=== PATIENT | male | born 1950 | race Caucasian/White ===

== ENCOUNTER 2019-12-07 04:14 | Emergency (ER) | payer MEDICARE, OTHER ==
[~2019-12-07] VITALS: Ht 185.4 cm; Wt 118.5 kg
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
--- OUTSIDE RECORDS SUMMARY | 2019-12-07 04:21 | XMS REPORT | Clinical Summary ---
Author Author Massimo, Kwasi Andino Organization [facility] Address Unknown Phone Unavailable Allergies, Adverse Reactions, Alerts Allergy Name Reaction Description Start Date Severity Status Pr ovider LATEX rash Moderate Active Gloria Elder MORPHINE hallucination Critical Active Gloria Elder Conditions or Problems Problem Name Problem Code Onset Date Status Entry Date Provider Comment Standard Description Annotate [facility] Active Macho Lawler MD Hypertrophy (benign) of prostate without urinary obstruction and other lower urinary tract (LUTS) Elevated prostate specific antigen [PSA] 790.93 Active Macho Lawler MD Elevated prostate specific antigen [PSA] BMI 35-35.9 Active Macho Lawler MD Body Mass Index 35.0-35.9, adult Medication List Medication Instructions Start Date Stop Date Generic Name NDC Status Provider Patient Instruction FLOMAX 0.4 MG ORAL CAPSULE once daily TAMSULOSIN HCL 54813217253 Active Macho Lawler MD Active XANAX 0.25 MG ORAL TABLET 1 po TID PRN Anxiety ALPRAZOLAM 43476521015 No Longer Active Macho Lawler MD Active PROSTATE HEALTH ORAL CAPSULE 1 cap by mouth daily 2019 [facility] NATURAL PRODUCTS 30826957273 No Longer Active Macho Lawler MD Active BRILINTA 90 MG ORAL TABLET 1 tab by mouth daily 10/11 TICAGRELOR 99228941013 No Longer Active Macho Lawler MD Acti ve NITROSTAT 0.4 MG SUBLINGUAL TABLET SUBLINGUAL 1 tab under to unge prn chest pain NITROGLYCERIN 88890615584 Active Macho Lawler MD Active TYLENOL GO TABS EXTRA STRENGTH 500 MG ORAL TABLET CHEW ABLE 1 to 2 tabs by mouth prn ACETAMINOPHEN 39676301360 Active Macho Lawler MD Active ASPIRIN 81 MG ORAL TABLET DELAYED RELEASE 1 po qd ASPIRIN 67890422175 Active Macho Lawler MD Active RANEXA 500 MG ORAL TABLET EXTENDED RELEASE 12 HOUR 1 tab by mouth daily RANOLAZINE 03038184218 Active Macho Lawler MD Active IBUPROFEN 600 MG ORAL TABLET 1 po q6-8hr PRN IB UPROFEN 70694653158 No Longer Active Macho Lawler MD Active CLARITIN 10 MG ORAL TABLET 1 tablet by mouth daily as needed for allergies LORATADINE 38273310329 No Longer Active J Alfredito solano MD Active FLONASE 50 MCG/ACT NASAL SUSPENSION 1 spray each nostr il twice daily for allergies and runny nose FLUTICASONE PROPIONATE 01324783086 No Longer Active Macho Lawler MD Active LISINOPRIL 10 MG ORAL TABLET 1 tablet by mouth daily LISINOPRIL 31359354748 Active Gloria Zazueta Active FLONASE 50 MCG/ACT NASAL SUSPENSION 1 spray each nostr il twice daily for allergies and runny nose FLONASE 50 MCG/ ACT NASAL SUSPENSION FLUTICASONE PROPIONATE Inactive CLARITIN 10 MG ORAL TABLET 1 tablet by mouth daily as needed for allergies CLARITIN 10 MG ORAL TABLET 610547 LORATADINE I nactive IBUPROFEN 600 MG ORAL TABLET 1 po q6-8hr PRN 7 IBUPROFEN 600 MG ORAL TABLET 671826 IBUPROFEN Inactive BRILINTA 90 MG ORAL TABLET 1 tab by mouth daily 10/11 BRILINTA 90 MG ORAL TABLET TICAGRELOR Inactive PROSTATE HEALTH ORAL CAPSULE 1 cap by mouth daily 2019 PROSTATE [facility]ALTH ORAL CAPSULE MISC NATURAL PRODUCTS Inactive XANAX 0.25 MG ORAL TABLET 1 po TID PRN Anxiety XANAX 0.25 MG ORAL TABLET 675630 ALPRAZOLAM Inactive Advance Directives Directive Description Start Date PERMISSION TO SHARE Vital Signs Date Name Value Unit Range Description blood pressure, diastolic, repeated by physician 64 BP [place] blood pressure, diastolic 64 mm[Hg] BP [place] blood pressure, systolic, repeated by physician 134 BP sys blood pressure, systolic 134 mm[Hg] BP sys height E&M 72 [in_us] Bdy height pulse rate E&M 80 /min Heart rate temperature E&M 98.2 [degF] Body temp erature weight E&M 260 [lb_av] Weight Measure d height E&M 72 [in_us] Bdy height weight E&M 255 [lb_av] Weight Measure d Encounters Code Encounter Date Provider Facility CPT-77587 Level 3 Est. 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 Patient 16:51:02 SUPERVISOR FISHING Macho breaux MD [facility] CPT-86991 Level 3 Est. Patient 11:49:04 SUPERVISOR FISHING Macho breaux MD [facility] CPT-60812 Level 2 Est. Patient 18:29:02 CDT Macho breaux MD [facility] CPT-99551 Level 4 New Patient 15:56:58 CDT Macho boggs MD [facility] Procedures Code Procedure Name Date Entry Date Standard Desc ription CPT-42571 Needle Biopsy - Prostate 09:12:00 CDT 05/05 CPT-34931 Ultrasound - Prostatic for Bx 09:11:59 CDT CPT-17373 Abx/Therapy Injection 18:29:02 CDT CPT-36102 Ultrasound - Prostatic for Bx 18:29:02 CDT CPT-78214 Needle Biopsy - Prostate 18:29:01 CDT 05/11
--- OUTSIDE RECORDS SUMMARY | 2019-12-07 04:21 | XMS REPORT | Clinical Summary ---
Author Author Massimo, Kwasi Andino Organization [facility] Address Unknown Phone Unavailable Allergies, Adverse Reactions, [...] MG ORAL CAPSULE once daily TAMSULOSIN HCL 10682746684 Active Macho Lawler MD Active XANAX 0.25 MG ORAL TABLET 1 po TID PRN Anxiety ALPRAZOLAM 25571352409 No Longer Active Macho Lawler MD Active PROSTATE HEALTH ORAL CAPSULE 1 cap by mouth daily 2019 [facility] NATURAL PRODUCTS 89534543468 No Longer Active Macho Lawler MD Active BRILINTA 90 MG ORAL TABLET 1 tab by mouth daily 10/11 TICAGRELOR 92417134680 No Longer Active Macho Lawler MD Acti ve NITROSTAT 0.4 MG SUBLINGUAL TABLET SUBLINGUAL 1 tab under to unge prn chest pain NITROGLYCERIN 89030628898 Active Macho Lawler MD Active TYLENOL GO TABS EXTRA STRENGTH 500 MG ORAL TABLET CHEW ABLE 1 to 2 tabs by mouth prn ACETAMINOPHEN 73956150197 Active Macho Lawler MD Active ASPIRIN 81 MG ORAL TABLET DELAYED RELEASE 1 po qd ASPIRIN 44813435983 Active Macho Lawler MD Active RANEXA 500 MG ORAL TABLET EXTENDED RELEASE 12 HOUR 1 tab by mouth daily RANOLAZINE 89682190845 Active Macho Lawler MD Active IBUPROFEN 600 MG ORAL TABLET 1 po q6-8hr PRN IB UPROFEN 51178220700 No Longer Active Macho Lawler MD Active CLARITIN 10 MG ORAL TABLET 1 tablet by mouth daily as needed for allergies LORATADINE 95004420444 No Longer Active J Alfredito solano MD Active FLONASE 50 MCG/ACT NASAL SUSPENSION 1 spray each nostr il twice daily for allergies and runny nose FLUTICASONE PROPIONATE 02375971980 No Longer Active Macho Lawler MD Active LISINOPRIL 10 MG ORAL TABLET 1 tablet by mouth daily LISINOPRIL 73690646013 Active Gloria Zazueta Active FLONASE 50 MCG/ACT NASAL SUSPENSION 1 spray each nostr il twice daily for allergies and runny nose FLONASE 50 MCG/ ACT NASAL SUSPENSION FLUTICASONE PROPIONATE Inactive CLARITIN 10 MG ORAL TABLET 1 tablet by mouth daily as needed for allergies CLARITIN 10 MG ORAL TABLET 411393 LORATADINE I nactive IBUPROFEN 600 MG ORAL TABLET 1 po q6-8hr PRN 7 IBUPROFEN 600 MG ORAL TABLET 161735 IBUPROFEN Inactive BRILINTA 90 MG ORAL TABLET 1 tab by mouth daily 10/11 BRILINTA 90 MG ORAL TABLET TICAGRELOR Inactive PROSTATE HEALTH ORAL CAPSULE 1 cap by mouth daily 2019 PROSTATE HEALTH ORAL CAPSULE MISC NATURAL PRODUCTS Inactive XANAX 0.25 MG ORAL TABLET 1 po TID PRN Anxiety XANAX 0.25 MG ORAL TABLET 323226 ALPRAZOLAM Inactive Advance Directives Directive Description Start [...] d Encounters Code Encounter Date Provider Facility CPT-16720 Level 3 Est. 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 Patient 16:51:02 GEOMETRY TUTOR Macho breaux MD [facility] CPT-83205 Level 3 Est. Patient 11:49:04 GEOMETRY TUTOR Macho breaux MD [facility] CPT-50604 Level 2 Est. Patient 18:29:02 CDT Macho breaux MD [facility] CPT-35770 Level 4 New Patient 15:56:58 CDT Macho boggs MD [facility] Procedures Code Procedure Name Date Entry Date Standard Desc ription CPT-77672 Needle Biopsy - Prostate 09:12:00 CDT 05/05 CPT-12161 Ultrasound - Prostatic for Bx 09:11:59 CDT CPT-64775 Abx/Therapy Injection 18:29:02 CDT CPT-53186 Ultrasound - Prostatic for Bx 18:29:02 CDT CPT-94100 Needle Biopsy - Prostate 18:29:01 CDT 05/11
--- OUTSIDE RECORDS SUMMARY | 2019-12-07 04:22 | XMS REPORT | Clinical Summary ---
Author Author Massimo, Kwasi Andino Organization [facility] Address Unknown Phone Unavailable Allergies, Adverse [...] MG ORAL CAPSULE once daily TAMSULOSIN HCL 54181483277 Active Macho Lawler MD Active XANAX 0.25 MG ORAL TABLET 1 po TID PRN Anxiety ALPRAZOLAM 54617316006 No Longer Active Macho Lawler MD Active PROSTATE HEALTH ORAL CAPSULE 1 cap by mouth daily 2019 [facility] NATURAL PRODUCTS 57001183489 No Longer Active Macho Lawler MD Active BRILINTA 90 MG ORAL TABLET 1 tab by mouth daily 10/11 TICAGRELOR 86875717455 No Longer Active Macho Lawler MD Acti ve NITROSTAT 0.4 MG SUBLINGUAL TABLET SUBLINGUAL 1 tab under to unge prn chest pain NITROGLYCERIN 04042324003 Active Macho Lawler MD Active TYLENOL GO TABS EXTRA STRENGTH 500 MG ORAL TABLET CHEW ABLE 1 to 2 tabs by mouth prn ACETAMINOPHEN 30358219700 Active Macho Lawler MD Active ASPIRIN 81 MG ORAL TABLET DELAYED RELEASE 1 po qd ASPIRIN 69085893543 Active Macho Lawler MD Active RANEXA 500 MG ORAL TABLET EXTENDED RELEASE 12 HOUR 1 tab by mouth daily RANOLAZINE 24702103095 Active Macho Lawler MD Active IBUPROFEN 600 MG ORAL TABLET 1 po q6-8hr PRN IB UPROFEN 42090124056 No Longer Active Macho Lawler MD Active CLARITIN 10 MG ORAL TABLET 1 tablet by mouth daily as needed for allergies LORATADINE 80932087088 No Longer Active J Alfredito solano MD Active FLONASE 50 MCG/ACT NASAL SUSPENSION 1 spray each nostr il twice daily for allergies and runny nose FLUTICASONE PROPIONATE 97941278738 No Longer Active Macho Lawler MD Active LISINOPRIL 10 MG ORAL TABLET 1 tablet by mouth daily LISINOPRIL 35566227511 Active Gloria Zazueta Active FLONASE 50 MCG/ACT NASAL SUSPENSION 1 spray each nostr il twice daily for allergies and runny nose FLONASE 50 MCG/ ACT NASAL SUSPENSION FLUTICASONE PROPIONATE Inactive CLARITIN 10 MG ORAL TABLET 1 tablet by mouth daily as needed for allergies CLARITIN 10 MG ORAL TABLET 981272 LORATADINE I nactive IBUPROFEN 600 MG ORAL TABLET 1 po q6-8hr PRN 7 IBUPROFEN 600 MG ORAL TABLET 032005 IBUPROFEN Inactive BRILINTA 90 MG ORAL TABLET 1 tab by mouth daily 10/11 BRILINTA 90 MG ORAL TABLET TICAGRELOR Inactive PROSTATE HEALTH ORAL CAPSULE 1 cap by mouth daily 2019 PROSTATE HEALTH ORAL CAPSULE MISC NATURAL PRODUCTS Inactive XANAX 0.25 MG ORAL TABLET 1 po TID PRN Anxiety XANAX 0.25 MG ORAL TABLET 219632 ALPRAZOLAM Inactive Advance Directives Directive Description Start [...] d Encounters Code Encounter Date Provider Facility CPT-46912 Level 3 Est. 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 Patient 16:51:02 ACCOUNTANT CERTIFIED PUBLIC Macho breaux MD [facility] CPT-24816 Level 3 Est. Patient 11:49:04 ACCOUNTANT CERTIFIED PUBLIC Macho breaux MD [facility] CPT-39680 Level 2 Est. Patient 18:29:02 CDT Macho breaux MD [facility] CPT-62876 Level 4 New Patient 15:56:58 CDT Macho boggs MD [facility] Procedures Code Procedure Name Date Entry Date Standard Desc ription CPT-59819 Needle Biopsy - Prostate 09:12:00 CDT 05/05 CPT-26944 Ultrasound - Prostatic for Bx 09:11:59 CDT CPT-76500 Abx/Therapy Injection 18:29:02 CDT CPT-47854 Ultrasound - Prostatic for Bx 18:29:02 CDT CPT-20478 Needle Biopsy - Prostate 18:29:01 CDT 05/11
--- OUTSIDE RECORDS SUMMARY | 2019-12-07 04:22 | XMS REPORT | Clinical Summary ---
Author Author Admin, Kwasi Andino Organization [facility] Address Unknown Phone Unavailable Allergies, Adverse Reactions, [...] Lawler MD Elevated prostate specific antigen [PSA] Medication List Medication Instructions Start Date Stop Date Generic Name NDC Status Provider Patient Instruction NITROSTAT 0.4 MG SUBLINGUAL TABLET SUBLINGUAL 1 tab under to unge prn chest pain NITROGLYCERIN 71125208401 Active Macho Lawler MD Active XANAX 0.25 MG ORAL TABLET 1 po TID PRN Anxiety ALPRAZOLAM 94001421033 Active Macho Lawler MD Active TYLENOL GO TABS EXTRA STRENGTH 500 MG ORAL TABLET CHEW ABLE 1 to 2 tabs by mouth prn ACETAMINOPHEN 34712982648 Active Macho Lawler MD Active PROSTATE HEALTH ORAL CAPSULE 1 cap by mouth daily [facility] NATURAL PRODUCTS 81654564091 Active Macho Lawler MD Active ASPIRIN 81 MG ORAL TABLET DELAYED RELEASE 1 po qd ASPIRIN 19353229066 Ghazal Lawler MD Active RANEXA 500 MG ORAL TABLET EXTENDED RELEASE 12 HOUR 1 tab by mouth daily RANOLAZINE 84408014248 Active Macho Lawler MD Active BRILINTA 90 MG ORAL TABLET 1 tab by mouth daily TICAGRELOR 24479640993 Ghazal Lawler MD Active IBUPROFEN 600 MG ORAL TABLET 1 po q6-8hr PRN IB UPROFEN 88230520475 No Longer Active Macho Lawler MD Active CLARITIN 10 MG ORAL TABLET 1 tablet by mouth daily as needed for allergies LORATADINE 77963858946 No Longer Active Macho solano MD Active FLONASE 50 MCG/ACT NASAL SUSPENSION 1 spray each nostr il twice daily for allergies and runny nose FLUTICASONE PROPIONATE 95626926166 No Longer Active Macho Lawler MD Active LISINOPRIL 10 MG ORAL TABLET 1 tablet by mouth daily LISINOPRIL 70423763390 Active Gloria Elder Active FLONASE 50 MCG/ACT NASAL SUSPENSION 1 spray each nostr il twice daily for allergies and runny nose FLONASE 50 MCG/ ACT NASAL SUSPENSION 0764654 FLUTICASONE PROPIONATE Inactive CLARITIN 10 MG ORAL TABLET 1 tablet by mouth daily as needed for allergies CLARITIN 10 MG ORAL TABLET 834095 LORATADINE I nactive IBUPROFEN 600 MG ORAL TABLET 1 po q6-8hr PRN 7 IBUPROFEN 600 MG ORAL TABLET 686325 IBUPROFEN Inactive Advance Directives Directive Description Start Date PERMISSION TO SHARE Vital Signs Date Name Value Unit Range Description blood pressure, diastolic 78 mm[Hg] BP [place] blood pressure, systolic 120 mm[Hg] BP sys pulse rate E&M 60 /min Heart rate temperature E&M 98.5 [degF] Body temp erature weight E&M 255 [lb_av] Weight Measure d blood pressure, diastolic 77 mm[Hg] BP [place] blood pressure, systolic 146 mm[Hg] BP sys pulse rate E&M 54 /min Heart rate temperature E&M 97.7 [degF] Body temp erature weight E&M 254.4 [lb_av] Weight Measure d blood pressure, diastolic 75 mm[Hg] BP [place] blood pressure, systolic 125 mm[Hg] BP sys pulse rate E&M 71 /min Heart rate temperature E&M 98.1 [degF] Body temp erature weight E&M 260 [lb_av] Weight Measure d blood pressure, diastolic 72 mm[Hg] BP [place] blood pressure, systolic 130 mm[Hg] BP sys height E&M 72 [in_us] Bdy height pulse rate E&M 72 /min Heart rate temperature E&M 97.6 [degF] Body temp erature weight E&M 260 [lb_av] Weight Measure d Diagnostic Results Date Name Value Unit Range Description Chart Maintenance: Outside labs entered on flowsheet - Chemistry prostate specific antigen 10.7 ng/mL prostate specific antigen 10.4 ng/mL Encounters Code Encounter Date Provider Facility CPT-62769 Level 3 Est. 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 Patient 18:29:02 CDT Macho breaux MD [facility] CPT-39709 Level 4 New Patient 15:56:58 CDT Macho boggs MD [facility] Procedures Code Procedure Name Date Entry Date Standard Desc ription CPT-14535 Needle Biopsy - Prostate 09:12:00 CDT 05/05 CPT-51998 Ultrasound - Prostatic for Bx 09:11:59 CDT CPT-83937 Abx/Therapy Injection 18:29:02 CDT CPT-07445 Ultrasound - Prostatic for Bx 18:29:02 CDT CPT-99767 Needle Biopsy - Prostate 18:29:01 CDT 05/11
--- OUTSIDE RECORDS SUMMARY | 2019-12-07 04:22 | XMS REPORT | Clinical Summary ---
Author Author Kwasi Keys Organization [facility] Address Unknown Phone Unavailable Allergies, [...] Instructions Start Date Stop Date Generic Name ND Status Provider Patient Instruction NITROSTAT 0.4 MG SUBLINGUAL TABLET SUBLINGUAL 1 tab under to unge prn chest pain NITROGLYCERIN 04386030364 Active Macho Lawler MD Active XANAX 0.25 MG ORAL TABLET 1 po TID PRN Anxiety ALPRAZOLAM 83362287878 Active Macho Lawler MD Active TYLENOL GO TABS EXTRA STRENGTH 500 MG ORAL TABLET CHEW ABLE 1 to 2 tabs by mouth prn ACETAMINOPHEN 18658497690 Ghazal Lawler MD Active PROSTATE HEALTH ORAL CAPSULE 1 cap by mouth daily [facility] NATURAL PRODUCTS 58917211063 Active Macho Lawler MD Active ASPIRIN 81 MG ORAL TABLET DELAYED RELEASE 1 po qd ASPIRIN 83979842859 Ghazal Lawler MD Active RANEXA 500 MG ORAL TABLET EXTENDED RELEASE 12 HOUR 1 tab by mouth daily RANOLAZINE 18258155892 Active Macho Lawler MD Active BRILINTA 90 MG ORAL TABLET 1 tab by mouth daily TICAGRELOR 72535268123 Ghazal Lawler MD Active IBUPROFEN 600 MG ORAL TABLET 1 po q6-8hr PRN IB UPROFEN 65138645147 No Longer Active Macho Lawler MD Active CLARITIN 10 MG ORAL TABLET 1 tablet by mouth daily as needed for allergies LORATADINE 28670597135 No Longer Active Macho solano MD Active FLONASE 50 MCG/ACT NASAL SUSPENSION 1 spray each nostr il twice daily for allergies and runny nose FLUTICASONE PROPIONATE 77553074609 No Longer Active Macho Lawler MD Active LISINOPRIL 10 MG ORAL TABLET 1 tablet by mouth daily LISINOPRIL 19317130765 Active Golria Elder Active FLONASE 50 MCG/ACT NASAL SUSPENSION 1 spray each nostr il twice daily for allergies and runny nose FLONASE 50 MCG/ ACT NASAL SUSPENSION FLUTICASONE PROPIONATE Inactive CLARITIN 10 MG ORAL TABLET 1 tablet by mouth daily as needed for allergies CLARITIN 10 MG ORAL TABLET 404675 LORATADINE I nactive IBUPROFEN 600 MG ORAL TABLET 1 po q6-8hr PRN 7 IBUPROFEN 600 MG ORAL TABLET 980173 IBUPROFEN Inactive Advance Directives Directive Description Start Date PERMISSION TO SHARE Vital Signs Date Name Value Unit Range Description height E&M 72 [in_us] Bdy height weight E&M 255 [lb_av] Weight Measure d Encounters Code Encounter Date Provider Facility CPT-93917 Level 3 Est. 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 Patient 11:49:04 CAN PATCHER Macho breaux MD [facility] [place] CPT-93145 Level 2 Est. Patient 18:29:02 CDT Macho breaux MD [facility] CPT-65863 Level 4 New Patient 15:56:58 CDT Macho boggs MD [facility] Procedures Code Procedure Name Date Entry Date Standard Desc ription CPT-55174 Needle Biopsy - Prostate 09:12:00 CDT 05/05 CPT-29795 Ultrasound - Prostatic for Bx 09:11:59 CDT CPT-40971 Abx/Therapy Injection 18:29:02 T CPT-96266 Ultrasound - Prostatic for Bx 18:29:02 T CPT-01171 Needle Biopsy - Prostate 18:29:01 T 05/11
--- OUTSIDE RECORDS SUMMARY | 2019-12-07 04:22 | XMS REPORT | Clinical Summary ---
Author Author Kwasi Keys Organization [facility] Address Unknown Phone Unavailable Allergies, Adverse Reactions, [...] under to unge prn chest pain NITROGLYCERIN 18039460059 Active Macho Lawler MD Active XANAX 0.25 MG ORAL TABLET 1 po TID PRN Anxiety ALPRAZOLAM 56031773444 Active Macho Lawler MD Active TYLENOL GO TABS EXTRA STRENGTH 500 MG ORAL TABLET CHEW ABLE 1 to 2 tabs by mouth prn ACETAMINOPHEN 86512957774 Ghazal Lawler MD Active PROSTATE HEALTH ORAL CAPSULE 1 cap by mouth daily [facility] NATURAL PRODUCTS 28910474037 Active Macho Lawler MD Active ASPIRIN 81 MG ORAL TABLET DELAYED RELEASE 1 po qd ASPIRIN 87390500864 Ghazal Lawler MD Active RANEXA 500 MG ORAL TABLET EXTENDED RELEASE 12 HOUR 1 tab by mouth daily RANOLAZINE 92483129870 Active Macho Lawler MD Active BRILINTA 90 MG ORAL TABLET 1 tab by mouth daily TICAGRELOR 65197627433 Ghazal Lawler MD Active IBUPROFEN 600 MG ORAL TABLET 1 po q6-8hr PRN IB UPROFEN 89286318513 No Longer Active Macho Lawler MD Active CLARITIN 10 MG ORAL TABLET 1 tablet by mouth daily as needed for allergies LORATADINE 53138376204 No Longer Active Macho solano MD Active FLONASE 50 MCG/ACT NASAL SUSPENSION 1 spray each nostr il twice daily for allergies and runny nose FLUTICASONE PROPIONATE 68823527651 No Longer Active Macho Lawler MD Active LISINOPRIL 10 MG ORAL TABLET 1 tablet by mouth daily LISINOPRIL 41912576618 Active Gloria Elder Active FLONASE 50 MCG/ACT NASAL SUSPENSION 1 spray each nostr il twice daily for allergies and runny nose FLONASE 50 MCG/ ACT NASAL SUSPENSION FLUTICASONE PROPIONATE Inactive CLARITIN 10 MG ORAL TABLET 1 tablet by mouth daily as needed for allergies CLARITIN 10 MG ORAL TABLET 703032 LORATADINE I nactive IBUPROFEN 600 MG ORAL TABLET 1 po q6-8hr PRN 7 IBUPROFEN 600 MG ORAL TABLET 829825 IBUPROFEN Inactive Advance Directives Directive Description Start Date PERMISSION TO SHARE Vital Signs Date Name Value Unit Range Description height E&M 72 [in_us] Bdy height weight E&M 255 [lb_av] Weight Measure d Encounters Code Encounter Date Provider Facility CPT-17827 Level 3 Est. 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 Patient 11:49:04 TURKEY PINNER Macho breaux MD [facility] [place] CPT-46256 Level 2 Est. Patient 18:29:02 CDT Macho [facility] CPT-91583 Level 4 New Patient 15:56:58 CDT Macho boggs MD [facility] Procedures Code Procedure Name Date Entry Date Standard Desc ription CPT-89142 Needle Biopsy - Prostate 09:12:00 CDT 05/05 CPT-39720 Ultrasound - Prostatic for Bx 09:11:59 CDT CPT-03602 Abx/Therapy Injection 18:29:02 T CPT-30713 Ultrasound - Prostatic for Bx 18:29:02 T CPT-95355 Needle Biopsy - Prostate 18:29:01 T 05/11
--- OUTSIDE RECORDS SUMMARY | 2019-12-07 04:22 | XMS REPORT | Clinical Summary ---
Author Author Massimo, Kwasi Andino Organization [facility] Address Unknown Phone Unavailable Allergies, Adverse [...] MG ORAL CAPSULE once daily TAMSULOSIN HCL 49014357918 Active Macho Lawler MD Active XANAX 0.25 MG ORAL TABLET 1 po TID PRN Anxiety ALPRAZOLAM 23313675606 No Longer Active Macho Lawler MD Active PROSTATE HEALTH ORAL CAPSULE 1 cap by mouth daily 2019 [facility]URAL PRODUCTS 06137275205 No Longer Active Macho Lawler MD Active BRILINTA 90 MG ORAL TABLET 1 tab by mouth daily 10/11 TICAGRELOR 04907165901 No Longer Active Macho Lawler MD Acti ve NITROSTAT 0.4 MG SUBLINGUAL TABLET SUBLINGUAL 1 tab under to unge prn chest pain NITROGLYCERIN 70921604829 Active Macho Lawler MD Active TYLENOL GO TABS EXTRA STRENGTH 500 MG ORAL TABLET CHEW ABLE 1 to 2 tabs by mouth prn ACETAMINOPHEN 29792525748 Active Macho Lawler MD Active ASPIRIN 81 MG ORAL TABLET DELAYED RELEASE 1 po qd ASPIRIN 22036407887 Active Macho Lawler MD Active RANEXA 500 MG ORAL TABLET EXTENDED RELEASE 12 HOUR 1 tab by mouth daily RANOLAZINE 26487434330 Active Macho Lawler MD Active IBUPROFEN 600 MG ORAL TABLET 1 po q6-8hr PRN IB UPROFEN 34995148080 No Longer Active Macho Lawler MD Active CLARITIN 10 MG ORAL TABLET 1 tablet by mouth daily as needed for allergies LORATADINE 93728410730 No Longer Active J Alfredito solano MD Active FLONASE 50 MCG/ACT NASAL SUSPENSION 1 spray each nostr il twice daily for allergies and runny nose FLUTICASONE PROPIONATE 35950447921 No Longer Active Macho Lawler MD Active LISINOPRIL 10 MG ORAL TABLET 1 tablet by mouth daily LISINOPRIL 78599238172 Active Gloria Zazueta Active FLONASE 50 MCG/ACT NASAL SUSPENSION 1 spray each nostr il twice daily for allergies and runny nose FLONASE 50 MCG/ ACT NASAL SUSPENSION FLUTICASONE PROPIONATE Inactive CLARITIN 10 MG ORAL TABLET 1 tablet by mouth daily as needed for allergies CLARITIN 10 MG ORAL TABLET 799039 LORATADINE I nactive IBUPROFEN 600 MG ORAL TABLET 1 po q6-8hr PRN 7 IBUPROFEN 600 MG ORAL TABLET 201356 IBUPROFEN Inactive BRILINTA 90 MG ORAL TABLET 1 tab by mouth daily 10/11 BRILINTA 90 MG ORAL TABLET TICAGRELOR Inactive PROSTATE HEALTH ORAL CAPSULE 1 cap by mouth daily 2019 PROSTATE HEALTH ORAL CAPSULE MISC NATURAL PRODUCTS Inactive XANAX 0.25 MG ORAL TABLET 1 po TID PRN Anxiety XANAX 0.25 MG ORAL TABLET 405171 ALPRAZOLAM Inactive Advance Directives Directive Description Start [...] d Encounters Code Encounter Date Provider Facility CPT-00536 Level 3 Est. Patient 10:49:38 ROUGH RICE GRADER Macho breaux MD [facility] CPT-38867 Level 3 Est. Patient 16:51:02 ROUGH RICE GRADER Macho breaux MD [facility] CPT-69019 Level 3 Est. Patient 11:49:04 ROUGH RICE GRADER Macho breaux MD [facility] CPT-72907 Level 2 Est. Patient 18:29:02 CDT Macho breaux MD [facility] CPT-11108 Level 4 New Patient 15:56:58 CDT Macho boggs MD [facility] Procedures Code Procedure Name Date Entry Date Standard Desc ription CPT-27856 Needle Biopsy - Prostate 09:12:00 CDT 05/05 CPT-25174 Ultrasound - Prostatic for Bx 09:11:59 CDT CPT-81011 Abx/Therapy Injection 18:29:02 CDT CPT-10310 Ultrasound - Prostatic for Bx 18:29:02 CDT CPT-40787 Needle Biopsy - Prostate 18:29:01 CDT 05/11
--- OUTSIDE RECORDS SUMMARY | 2019-12-07 04:22 | XMS REPORT | Clinical Summary ---
Author Author Admin, Kwasi Andino Organization [facility] Address Unknown Phone Unavailable Allergies, Adverse [...] under to unge prn chest pain NITROGLYCERIN 68136639558 Active Macho Lawler MD Active XANAX 0.25 MG ORAL TABLET 1 po TID PRN Anxiety ALPRAZOLAM 27758125202 Active Macho Lawler MD Active TYLENOL GO TABS EXTRA STRENGTH 500 MG ORAL TABLET CHEW ABLE 1 to 2 tabs by mouth prn ACETAMINOPHEN 45505555918 Active Macho Lawler MD Active PROSTATE HEALTH ORAL CAPSULE 1 cap by mouth daily [facility] NATURAL PRODUCTS 87335530735 Active Macho Lawler MD Active ASPIRIN 81 MG ORAL TABLET DELAYED RELEASE 1 po qd ASPIRIN 42881116862 Ghazal Lawler MD Active RANEXA 500 MG ORAL TABLET EXTENDED RELEASE 12 HOUR 1 tab by mouth daily RANOLAZINE 23369644912 Active Macho Lawler MD Active BRILINTA 90 MG ORAL TABLET 1 tab by mouth daily TICAGRELOR 99590790884 Ghazal Lawler MD Active IBUPROFEN 600 MG ORAL TABLET 1 po q6-8hr PRN IB UPROFEN 37852382072 No Longer Active Macho Lawler MD Active CLARITIN 10 MG ORAL TABLET 1 tablet by mouth daily as needed for allergies LORATADINE 26807968917 No Longer Active Macho solano MD Active FLONASE 50 MCG/ACT NASAL SUSPENSION 1 spray each nostr il twice daily for allergies and runny nose FLUTICASONE PROPIONATE 07051389287 No Longer Active Macho aLwler MD Active LISINOPRIL 10 MG ORAL TABLET 1 tablet by mouth daily LISINOPRIL 07980245451 Active Gloria Elder Active FLONASE 50 MCG/ACT NASAL SUSPENSION 1 spray each nostr il twice daily for allergies and runny nose FLONASE 50 MCG/ ACT NASAL SUSPENSION 6417745 FLUTICASONE PROPIONATE Inactive CLARITIN 10 MG ORAL TABLET 1 tablet by mouth daily as needed for allergies CLARITIN 10 MG ORAL TABLET 307595 LORATADINE I nactive IBUPROFEN 600 MG ORAL TABLET 1 po q6-8hr PRN 7 IBUPROFEN 600 MG ORAL TABLET 638419 IBUPROFEN Inactive Advance Directives Directive Description Start Date PERMISSION TO SHARE Vital Signs Date Name Value Unit Range Description blood pressure, diastolic 77 mm[Hg] BP archuleta [...] ng/mL Encounters Code Encounter Date Provider Facility CPT-09133 Level 3 Est. Patient 11:49:04 SCIENTIFIC ADVISOR Macho breaux MD [facility] CPT-32344 Level 2 Est. Patient 18:29:02 CDT Macho breaux MD [facility] CPT-21115 Level 4 New Patient 15:56:58 CDT Macho boggs MD [facility] Procedures Code Procedure Name Date Entry Date Standard Desc ription CPT-65710 Needle Biopsy - Prostate 09:12:00 CDT 05/05 CPT-31634 Ultrasound - Prostatic for Bx 09:11:59 CDT CPT-12350 Abx/Therapy Injection 18:29:02 CDT CPT-80494 Ultrasound - Prostatic for Bx 18:29:02 CDT CPT-66390 Needle Biopsy - Prostate 18:29:01 CDT 05/11
--- OUTSIDE RECORDS SUMMARY | 2019-12-07 04:22 | XMS REPORT | Clinical Summary ---
Author Author Kwasi Keys Organization [facility] Address Unknown Phone Unavailable Allergies, Adverse Reactions, [...] under to unge prn chest pain NITROGLYCERIN 06196665356 Active Macho Lawler MD Active XANAX 0.25 MG ORAL TABLET 1 po TID PRN Anxiety ALPRAZOLAM 20953432229 Active Macho Lawler MD Active TYLENOL GO TABS EXTRA STRENGTH 500 MG ORAL TABLET CHEW ABLE 1 to 2 tabs by mouth prn ACETAMINOPHEN 06553750941 Ghazal Lawler MD Active PROSTATE HEALTH ORAL CAPSULE 1 cap by mouth daily [facility] NATURAL PRODUCTS 19783866886 Active Macho Lawler MD Active ASPIRIN 81 MG ORAL TABLET DELAYED RELEASE 1 po qd ASPIRIN 35978316011 Ghazal Lawler MD Active RANEXA 500 MG ORAL TABLET EXTENDED RELEASE 12 HOUR 1 tab by mouth daily RANOLAZINE 49888677583 Active Macho Lawler MD Active BRILINTA 90 MG ORAL TABLET 1 tab by mouth daily TICAGRELOR 59645898857 Ghazal Lawler MD Active IBUPROFEN 600 MG ORAL TABLET 1 po q6-8hr PRN IB UPROFEN 69342447494 No Longer Active Macho Lawler MD Active CLARITIN 10 MG ORAL TABLET 1 tablet by mouth daily as needed for allergies LORATADINE 36721050984 No Longer Active Macho solano MD Active FLONASE 50 MCG/ACT NASAL SUSPENSION 1 spray each nostr il twice daily for allergies and runny nose FLUTICASONE PROPIONATE 74503170962 No Longer Active Macho Lawler MD Active LISINOPRIL 10 MG ORAL TABLET 1 tablet by mouth daily LISINOPRIL 42202719798 Active Gloria Elder Active FLONASE 50 MCG/ACT NASAL SUSPENSION 1 spray each nostr il twice daily for allergies and runny nose FLONASE 50 MCG/ ACT NASAL SUSPENSION FLUTICASONE PROPIONATE Inactive CLARITIN 10 MG ORAL TABLET 1 tablet by mouth daily as needed for allergies CLARITIN 10 MG ORAL TABLET 065341 LORATADINE I nactive IBUPROFEN 600 MG ORAL TABLET 1 po q6-8hr PRN 7 IBUPROFEN 600 MG ORAL TABLET 702991 IBUPROFEN Inactive Advance Directives Directive Description Start Date PERMISSION TO SHARE Vital Signs Date Name Value Unit Range Description height E&M 72 [in_us] Bdy height weight E&M 255 [lb_av] Weight Measure d Encounters Code Encounter Date Provider Facility CPT-49812 Level 3 Est. 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 Patient 11:49:04 OUTDOOR EDUCATION TEACHER Macho breaux MD [facility] CPT-24089 Level 2 Est. Patient 18:29:02 CDT Macho breaux MD [facility] CPT-90291 Level 4 New Patient 15:56:58 CDT Macho boggs MD [facility] Procedures Code Procedure Name Date Entry Date Standard Desc ription CPT-46960 Needle Biopsy - Prostate 09:12:00 CDT 05/05 CPT-00150 Ultrasound - Prostatic for Bx 09:11:59 CDT CPT-48555 Abx/Therapy Injection 18:29:02 T CPT-90498 Ultrasound - Prostatic for Bx 18:29:02 T CPT-78957 Needle Biopsy - Prostate 18:29:01 T 05/11
--- OUTSIDE RECORDS SUMMARY | 2019-12-07 04:22 | XMS REPORT | Clinical Summary ---
Author Author Kwasi Keys Organization [facility] Address Unknown Phone Unavailable Allergies, Adverse [...] under to unge prn chest pain NITROGLYCERIN 43299818234 Active Macho Lawler MD Active XANAX 0.25 MG ORAL TABLET 1 po TID PRN Anxiety ALPRAZOLAM 93718754946 Active Macho Lawler MD Active TYLENOL GO TABS EXTRA STRENGTH 500 MG ORAL TABLET CHEW ABLE 1 to 2 tabs by mouth prn ACETAMINOPHEN 11983793465 Ghazal Lawler MD Active PROSTATE HEALTH ORAL CAPSULE 1 cap by mouth daily [facility] NATURAL PRODUCTS 35381226023 Active Macho Lawler MD Active ASPIRIN 81 MG ORAL TABLET DELAYED RELEASE 1 po qd ASPIRIN 17442709944 Ghazal Lawler MD Active RANEXA 500 MG ORAL TABLET EXTENDED RELEASE 12 HOUR 1 tab by mouth daily RANOLAZINE 42696680753 Active Macho Lawler MD Active BRILINTA 90 MG ORAL TABLET 1 tab by mouth daily TICAGRELOR 03586257714 Ghazal Lawler MD Active IBUPROFEN 600 MG ORAL TABLET 1 po q6-8hr PRN IB UPROFEN 11451265772 No Longer Active Macho Lawler MD Active CLARITIN 10 MG ORAL TABLET 1 tablet by mouth daily as needed for allergies LORATADINE 41972638488 No Longer Active Macho solano MD Active FLONASE 50 MCG/ACT NASAL SUSPENSION 1 spray each nostr il twice daily for allergies and runny nose FLUTICASONE PROPIONATE 74246664751 No Longer Active Macho Lawler MD Active LISINOPRIL 10 MG ORAL TABLET 1 tablet by mouth daily LISINOPRIL 48076257018 Active Gloria Elder Active FLONASE 50 MCG/ACT NASAL SUSPENSION 1 spray each nostr il twice daily for allergies and runny nose FLONASE 50 MCG/ ACT NASAL SUSPENSION FLUTICASONE PROPIONATE Inactive CLARITIN 10 MG ORAL TABLET 1 tablet by mouth daily as needed for allergies CLARITIN 10 MG ORAL TABLET 190616 LORATADINE I nactive IBUPROFEN 600 MG ORAL TABLET 1 po q6-8hr PRN 7 IBUPROFEN 600 MG ORAL TABLET 656611 IBUPROFEN Inactive Advance Directives Directive Description Start Date PERMISSION TO SHARE Vital Signs Date Name Value Unit Range Description height E&M 72 [in_us] Bdy height weight E&M 255 [lb_av] Weight Measure d Encounters Code Encounter Date Provider Facility CPT-67112 Level 3 Est. Patient 16:51:02 OPERATIONS OFFICER AFLOAT Macho breaux MD [facility] CPT-54092 Level 3 Est. Patient 11:49:04 OPERATIONS OFFICER AFLOAT Macho breaux MD [facility] CPT-33607 Level 2 Est. Patient 18:29:02 CDT Macho breaux MD [facility] CPT-22596 Level 4 New Patient 15:56:58 CDT Macho boggs MD [facility] Procedures Code Procedure Name Date Entry Date Standard Desc ription CPT-88407 Needle Biopsy - Prostate 09:12:00 CDT 05/05 CPT-49521 Ultrasound - Prostatic for Bx 09:11:59 CDT CPT-36807 Abx/Therapy Injection 18:29:02 T CPT-06965 Ultrasound - Prostatic for Bx 18:29:02 T CPT-17858 Needle Biopsy - Prostate 18:29:01 T 05/11
--- OUTSIDE RECORDS SUMMARY | 2019-12-07 04:22 | XMS REPORT | Clinical Summary ---
Author Author Massimo, Kwasi Andino Organization [facility] Address Unknown [...] MD Elevated prostate specific antigen [PSA] BMI 34-34.9 Active Macho Lawler MD Body Mass Index 34.0-34.9, adult Obesity Class I (BMI 30-34.9) Active 09/10 Macho Lawler MD Obesity, unspecified At Risk for Falls Active Macho Lawler MD Personal history of fall Rising PSA 790.93 Active Macho Lawler MD Elevated prostate specific antigen [PSA] Medication List Medication Instructions Start Date Stop Date Generic Name NDC Status Provider Patient Instruction NITROSTAT 0.4 MG SUBLINGUAL TABLET SUBLINGUAL 1 tab under to unge prn chest pain NITROGLYCERIN 82336576772 Active Macho Lawler MD Active XANAX 0.25 MG ORAL TABLET 1 po TID PRN Anxiety ALPRAZOLAM 30157094032 Active Macho Lawler MD Active TYLENOL GO TABS EXTRA STRENGTH 500 MG ORAL TABLET CHEW ABLE 1 to 2 tabs by mouth prn ACETAMINOPHEN 25639086498 Active Macho Lawler MD Active PROSTATE HEALTH ORAL CAPSULE 1 cap by mouth daily [facility] NATURAL PRODUCTS 35126442351 Active Macho Lawler MD Active ASPIRIN 81 MG ORAL TABLET DELAYED RELEASE 1 po qd ASPIRIN 19930465735 Active Macho Lawler MD Active RANEXA 500 MG ORAL TABLET EXTENDED RELEASE 12 HOUR 1 tab by mouth daily RANOLAZINE 10514890280 Active Macho Lawler MD Active BRILINTA 90 MG ORAL TABLET 1 tab by mouth daily TICAGRELOR 09090156694 Active Macho Lawler MD Active IBUPROFEN 600 MG ORAL TABLET 1 po q6-8hr PRN IB UPROFEN 75532605194 No Longer Active Macho Lawler MD Active CLARITIN 10 MG ORAL TABLET 1 tablet by mouth daily as needed for allergies LORATADINE 09787789814 No Longer Active Macho solano MD Active FLONASE 50 MCG/ACT NASAL SUSPENSION 1 spray each nostr il twice daily for allergies and runny nose FLUTICASONE PROPIONATE 12004817327 No Longer Active Macho Lawler MD Active LISINOPRIL 10 MG ORAL TABLET 1 tablet by mouth daily LISINOPRIL 15771232503 Active Gloria Zazueta Active FLONASE 50 MCG/ACT NASAL SUSPENSION 1 spray each nostr il twice daily for allergies and runny nose FLONASE 50 MCG/ ACT NASAL SUSPENSION FLUTICASONE PROPIONATE Inactive CLARITIN 10 MG ORAL TABLET 1 tablet by mouth daily as needed for allergies CLARITIN 10 MG ORAL TABLET 997210 LORATADINE I nactive IBUPROFEN 600 MG ORAL TABLET 1 po q6-8hr PRN 7 IBUPROFEN 600 MG ORAL TABLET 389508 IBUPROFEN Inactive Advance Directives Directive Description Start Date PERMISSION TO SHARE Vital Signs Date Name Value Unit Range Description height E&M 72 [in_us] Bdy height weight E&M 255 [lb_av] Weight Measure d Encounters Code Encounter Date Provider Facility CPT-21386 Level 3 Est. Patient 16:51:02 DEALMAKER Macho breaux MD [facility] CPT-47003 Level 3 Est. Patient 11:49:04 DEALMAKER Macho breaux MD [facility] CPT-89116 Level 2 Est. Patient 18:29:02 CDT Macho breaux MD [facility] CPT-47826 Level 4 New Patient 15:56:58 CDT Macho boggs MD [facility] Procedures Code Procedure Name Date Entry Date Standard Desc ription CPT-82802 Needle Biopsy - Prostate 09:12:00 CDT 05/05 CPT-22884 Ultrasound - Prostatic for Bx 09:11:59 CDT CPT-71409 Abx/Therapy Injection 18:29:02 CDT CPT-42762 Ultrasound - Prostatic for Bx 18:29:02 CDT CPT-72734 Needle Biopsy - Prostate 18:29:01 CDT 05/11
--- OUTSIDE RECORDS SUMMARY | 2019-12-07 04:22 | XMS REPORT | Clinical Summary ---
Author Author Massimo, Kwasi Andino Organization [facility] Address Unknown Phone Unavailable Allergies, Adverse Reactions, [...] prostate specific antigen [PSA] BMI 35-35.9 Active aMcho Lawler MD Body Mass Index 35.0-35.9, adult Medication List Medication Instructions Start Date Stop Date Generic Name NDC Status Provider Patient Instruction FLOMAX 0.4 MG ORAL CAPSULE once daily TAMSULOSIN HCL 23939815188 Active Macho Lawler MD Active XANAX 0.25 MG ORAL TABLET 1 po TID PRN Anxiety ALPRAZOLAM 01868136896 No Longer Active Macho Lawler MD Active PROSTATE HEALTH ORAL CAPSULE 1 cap by mouth daily 2019 [facility] [place]URAL PRODUCTS 86436227078 No Longer Active Macho Lawler MD Active BRILINTA 90 MG ORAL TABLET 1 tab by mouth daily 10/11 TICAGRELOR 98546221482 No Longer Active Macho Lawler MD Acti ve NITROSTAT 0.4 MG SUBLINGUAL TABLET SUBLINGUAL 1 tab under to unge prn chest pain NITROGLYCERIN 52248525967 Active Macho Lawler MD Active TYLENOL GO TABS EXTRA STRENGTH 500 MG ORAL TABLET CHEW ABLE 1 to 2 tabs by mouth prn ACETAMINOPHEN 88294921274 Active Macho Lawler MD Active ASPIRIN 81 MG ORAL TABLET DELAYED RELEASE 1 po qd ASPIRIN 70961930165 Active Macho Lawler MD Active RANEXA 500 MG ORAL TABLET EXTENDED RELEASE 12 HOUR 1 tab by mouth daily RANOLAZINE 68161521654 Active Macho Lawler MD Active IBUPROFEN 600 MG ORAL TABLET 1 po q6-8hr PRN IB UPROFEN 62433353863 No Longer Active Macho Lawler MD Active CLARITIN 10 MG ORAL TABLET 1 tablet by mouth daily as needed for allergies LORATADINE 60819131481 No Longer Active J Alfredito solano MD Active FLONASE 50 MCG/ACT NASAL SUSPENSION 1 spray each nostr il twice daily for allergies and runny nose FLUTICASONE PROPIONATE 71064254436 No Longer Active Macho Lawler MD Active LISINOPRIL 10 MG ORAL TABLET 1 tablet by mouth daily LISINOPRIL 60040706621 Active Gloria Zazueta Active FLONASE 50 MCG/ACT NASAL SUSPENSION 1 spray each nostr il twice daily for allergies and runny nose FLONASE 50 MCG/ ACT NASAL SUSPENSION FLUTICASONE PROPIONATE Inactive CLARITIN 10 MG ORAL TABLET 1 tablet by mouth daily as needed for allergies CLARITIN 10 MG ORAL TABLET 809497 LORATADINE I nactive IBUPROFEN 600 MG ORAL TABLET 1 po q6-8hr PRN 7 IBUPROFEN 600 MG ORAL TABLET 065727 IBUPROFEN Inactive BRILINTA 90 MG ORAL TABLET 1 tab by mouth daily 10/11 BRILINTA 90 MG ORAL TABLET TICAGRELOR Inactive PROSTATE HEALTH ORAL CAPSULE 1 cap by mouth daily 2019 PROSTATE HEALTH ORAL CAPSULE MISC NATURAL PRODUCTS Inactive XANAX 0.25 MG ORAL TABLET 1 po TID PRN Anxiety XANAX 0.25 MG ORAL TABLET 388005 ALPRAZOLAM Inactive Advance Directives Directive Description Start [...] d Encounters Code Encounter Date Provider Facility CPT-94424 Level 3 Est. 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 Patient 16:51:02 RIGGING LOFT MECHANIC Macho breaux MD [facility] CPT-03991 Level 3 Est. Patient 11:49:04 RIGGING LOFT MECHANIC Macho breaux MD [facility] CPT-33282 Level 2 Est. Patient 18:29:02 CDT Mcaho breaux MD [facility] CPT-49077 Level 4 New Patient 15:56:58 CDT Macho boggs MD [facility] Procedures Code Procedure Name Date Entry Date Standard Desc ription CPT-62871 Needle Biopsy - Prostate 09:12:00 CDT 05/05 CPT-43759 Ultrasound - Prostatic for Bx 09:11:59 CDT CPT-11095 Abx/Therapy Injection 18:29:02 CDT CPT-37544 Ultrasound - Prostatic for Bx 18:29:02 CDT CPT-19849 Needle Biopsy - Prostate 18:29:01 CDT 05/11
--- OUTSIDE RECORDS SUMMARY | 2019-12-07 04:22 | XMS REPORT | Clinical Summary ---
Author Author Admin, Kwasi Andino Organization [facility] Address Unknown Phone Unavailable Allergies, Adverse [...] Generic Name NDC Status Provider Patient Instruction FLONASE 50 MCG/ACT SUSP 1 spray each nostril twice d aily for allergies and runny nose FLUTICASONE PROPIONATE 17538989560 No Longer Ac tive Macho Lawler MD Active IBUPROFEN 600 MG TAB 1 po q6-8hr PRN IBUPROFEN 642261 35678 Active Gloria Elder Active CLARITIN 10 MG TAB 1 tablet by mouth daily as needed for allergies LORATADINE 50216776184 Active Gloria Elder Active LISINOPRIL 10 MG TABS 1 tablet by mouth daily L ISINOPRIL 75248801379 Active Gloria Elder Active FLONASE 50 MCG/ACT SUSP 1 spray each nostril twice d aily for allergies and runny nose FLONASE 50 MCG/ACT SUSP 7493311 FLUT ICASONE PROPIONATE Inactive Advance Directives Directive Description Start Date [...] - Chemistry prostate specific antigen 10.7 ng/mL Encounters Code Encounter Date Provider Facility CPT-79552 Level 2 Est. Patient 18:29:02 CDT Macho breaux MD [facility] CPT-30861 Level 4 New Patient 15:56:58 CDT Macho boggs MD [facility] Procedures Code Procedure Name Date Entry Date Standard Desc ription CPT-09288 Needle Biopsy - Prostate 09:12:00 CDT 05/05 CPT-92828 Ultrasound - Prostatic for Bx 09:11:59 CDT CPT-60542 Abx/Therapy Injection 18:29:02 CDT CPT-19676 Ultrasound - Prostatic for Bx 18:29:02 CDT CPT-01934 Needle Biopsy - Prostate 18:29:01 CDT 05/11
--- OUTSIDE RECORDS SUMMARY | 2019-12-07 04:22 | XMS REPORT | Clinical Summary ---
Author Author Massimo, Kwasi Andino Organization [facility] Address Unknown Phone Unavailable Allergies, Adverse [...] MG ORAL CAPSULE once daily TAMSULOSIN HCL 81849295106 Active Macho Lawler MD Active XANAX 0.25 MG ORAL TABLET 1 po TID PRN Anxiety ALPRAZOLAM 31791697535 No Longer Active Macho Lawler MD Active PROSTATE HEALTH ORAL CAPSULE 1 cap by mouth daily 2019 [facility] NATURAL PRODUCTS 33773624916 No Longer Active Macho Lawler MD Active BRILINTA 90 MG ORAL TABLET 1 tab by mouth daily 10/11 TICAGRELOR 85070231222 No Longer Active Macho Lawler MD Acti ve NITROSTAT 0.4 MG SUBLINGUAL TABLET SUBLINGUAL 1 tab under to unge prn chest pain NITROGLYCERIN 17883247237 Active Macho Lawler MD Active TYLENOL GO TABS EXTRA STRENGTH 500 MG ORAL TABLET CHEW ABLE 1 to 2 tabs by mouth prn ACETAMINOPHEN 32354653782 Active Macho Lawler MD Active ASPIRIN 81 MG ORAL TABLET DELAYED RELEASE 1 po qd ASPIRIN 83702351641 Active Macho Lawler MD Active RANEXA 500 MG ORAL TABLET EXTENDED RELEASE 12 HOUR 1 tab by mouth daily RANOLAZINE 02404428866 Active Macho Lawler MD Active IBUPROFEN 600 MG ORAL TABLET 1 po q6-8hr PRN IB UPROFEN 41188678454 No Longer Active Macho Lawler MD Active CLARITIN 10 MG ORAL TABLET 1 tablet by mouth daily as needed for allergies LORATADINE 48612321888 No Longer Active J Alfredito solano MD Active FLONASE 50 MCG/ACT NASAL SUSPENSION 1 spray each nostr il twice daily for allergies and runny nose FLUTICASONE PROPIONATE 15971864905 No Longer Active Mcaho Lawler MD Active LISINOPRIL 10 MG ORAL TABLET 1 tablet by mouth daily LISINOPRIL 05505871092 Active Gloria Zazueta Active FLONASE 50 MCG/ACT NASAL SUSPENSION 1 spray each nostr il twice daily for allergies and runny nose FLONASE 50 MCG/ ACT NASAL SUSPENSION FLUTICASONE PROPIONATE Inactive CLARITIN 10 MG ORAL TABLET 1 tablet by mouth daily as needed for allergies CLARITIN 10 MG ORAL TABLET 285331 LORATADINE I nactive IBUPROFEN 600 MG ORAL TABLET 1 po q6-8hr PRN 7 IBUPROFEN 600 MG ORAL TABLET 479064 IBUPROFEN Inactive BRILINTA 90 MG ORAL TABLET 1 tab by mouth daily 10/11 BRILINTA 90 MG ORAL TABLET TICAGRELOR Inactive PROSTATE HEALTH ORAL CAPSULE 1 cap by mouth daily 2019 PROSTATE HEALTH ORAL CAPSULE MISC NATURAL PRODUCTS Inactive XANAX 0.25 MG ORAL TABLET 1 po TID PRN Anxiety XANAX 0.25 MG ORAL TABLET 250905 ALPRAZOLAM Inactive Advance Directives Directive Description Start [...] d Encounters Code Encounter Date Provider Facility CPT-63808 Level 3 Est. Patient 10:49:38 EX ASSISTANT/PROGRAM DIRECTOR Macho breaux MD [facility] CPT-11523 Level 3 Est. Patient 16:51:02 EX ASSISTANT/PROGRAM DIRECTOR Macho breaux MD [facility] CPT-15179 Level 3 Est. Patient 11:49:04 EX ASSISTANT/PROGRAM DIRECTOR Macho breaux MD [facility] CPT-83071 Level 2 Est. Patient 18:29:02 CDT Macho breaux MD [facility] CPT-07348 Level 4 New Patient 15:56:58 CDT Macho boggs MD [facility] Procedures Code Procedure Name Date Entry Date Standard Desc ription CPT-42412 Needle Biopsy - Prostate 09:12:00 CDT 05/05 CPT-25565 Ultrasound - Prostatic for Bx 09:11:59 CDT CPT-80776 Abx/Therapy Injection 18:29:02 CDT CPT-59688 Ultrasound - Prostatic for Bx 18:29:02 CDT CPT-28563 Needle Biopsy - Prostate 18:29:01 CDT 05/11
--- OUTSIDE RECORDS SUMMARY | 2019-12-07 04:23 | XMS REPORT | Clinical Summary ---
Author Author Admin, Kwasi Andino Organization [facility] Address Unknown Phone Unavailable Allergies, Adverse [...] for allergies and runny nose FLUTICASONE PROPIONATE 62205018207 No Longer Ac tive Macho Lawler MD Active IBUPROFEN 600 MG TAB 1 po q6-8hr PRN IBUPROFEN 831507 41548 Active Gloria Elder Active CLARITIN 10 MG TAB 1 tablet by mouth daily as needed for allergies LORATADINE 87869316960 Active Gloria Elder Active LISINOPRIL 10 MG TABS 1 tablet by mouth daily L ISINOPRIL 74441423724 Active Gloria Elder Active FLONASE 50 MCG/ACT SUSP 1 spray each nostril twice d aily for allergies and runny nose FLONASE 50 MCG/ACT SUSP 0650309 FLUT ICASONE PROPIONATE Inactive Advance Directives Directive [...] ng/mL Encounters Code Encounter Date Provider Facility CPT-78884 Level 2 Est. Patient 18:29:02 CDT Macho breaux MD [facility] CPT-81940 Level 4 New Patient 15:56:58 CDT Macho boggs MD [facility] - [facility] Procedures Code Procedure Name Date Entry Date Standard Desc ription CPT-10579 Needle Biopsy - Prostate 09:12:00 CDT 05/05 CPT-56292 Ultrasound - Prostatic for Bx 09:11:59 CDT CPT-87745 Abx/Therapy Injection 18:29:02 CDT CPT-77520 Ultrasound - Prostatic for Bx 18:29:02 CDT CPT-56548 Needle Biopsy - Prostate 18:29:01 CDT 05/11
--- OUTSIDE RECORDS SUMMARY | 2019-12-07 04:23 | XMS REPORT | Clinical Summary ---
Author Author Admin, Kwasi Andino Organization [facility] Address Unknown Phone Unavailable Allergies, Adverse [...] for allergies and runny nose FLUTICASONE PROPIONATE 86047091034 No Longer Ac tive Macho Lawler MD Active IBUPROFEN 600 MG TAB 1 po q6-8hr PRN IBUPROFEN 380032 31560 Active Gloria Elder Active CLARITIN 10 MG TAB 1 tablet by mouth daily as needed for allergies LORATADINE 69053501112 Active Gloria Elder Active LISINOPRIL 10 MG TABS 1 tablet by mouth daily L ISINOPRIL 89173522229 Active Gloria Elder Active FLONASE 50 MCG/ACT SUSP 1 spray each nostril twice d aily for allergies and runny nose FLONASE 50 MCG/ACT SUSP 1759854 FLUT ICASONE PROPIONATE Inactive Advance Directives Directive [...] ng/mL Encounters Code Encounter Date Provider Facility CPT-54501 Level 2 Est. Patient 18:29:02 CDT Macho breaux MD [facility] CPT-23367 Level 4 New Patient 15:56:58 CDT Macho boggs MD [facility] - [facility] Procedures Code Procedure Name Date Entry Date Standard Desc ription CPT-18672 Needle Biopsy - Prostate 09:12:00 CDT 05/05 CPT-06966 Ultrasound - Prostatic for Bx 09:11:59 CDT CPT-47231 Abx/Therapy Injection 18:29:02 CDT CPT-36979 Ultrasound - Prostatic for Bx 18:29:02 CDT CPT-48983 Needle Biopsy - Prostate 18:29:01 CDT 05/11
--- OUTSIDE RECORDS SUMMARY | 2019-12-07 04:23 | XMS REPORT | Clinical Summary ---
Author Author Admin, Kwasi Andino Organization [facility] Address Unknown Phone Unavailable Allergies, Adverse Reactions, [...] for allergies and runny nose FLUTICASONE PROPIONATE 88413544617 No Longer Ac tive Macho Lawler MD Active IBUPROFEN 600 MG TAB 1 po q6-8hr PRN IBUPROFEN 674210 77293 Active Gloria Elder Active CLARITIN 10 MG TAB 1 tablet by mouth daily as needed for allergies LORATADINE 34698252242 Active Gloria Elder Active LISINOPRIL 10 MG TABS 1 tablet by mouth daily L ISINOPRIL 09383937040 Active Gloria Elder Active FLONASE 50 MCG/ACT SUSP 1 spray each nostril twice d aily for allergies and runny nose FLONASE 50 MCG/ACT SUSP 1950710 FLUT ICASONE PROPIONATE Inactive Advance Directives Directive [...] weight E&M 260 [lb_av] Weight Measure d Encounters Code Encounter Date Provider Facility CPT-14305 Level 2 Est. Patient 18:29:02 CDT Macho breaux MD [facility] CPT-78768 Level 4 New Patient 15:56:58 CDT Macho boggs MD [facility] - [facility] Procedures Code Procedure Name Date Entry Date Standard Desc ription CPT-13216 Needle Biopsy - Prostate 09:12:00 CDT 05/05 CPT-59546 Ultrasound - Prostatic for Bx 09:11:59 CDT CPT-15697 Abx/Therapy Injection 18:29:02 CDT CPT-97433 Ultrasound - Prostatic for Bx 18:29:02 CDT CPT-61302 Needle Biopsy - Prostate 18:29:01 CDT 05/11
--- OUTSIDE RECORDS SUMMARY | 2019-12-07 04:23 | XMS REPORT | Clinical Summary ---
Author Author Admin, Kwasi Andino Organization [facility] Address Unknown Phone Unavailable Allergies, Adverse [...] for allergies and runny nose FLUTICASONE PROPIONATE 98122378878 No Longer Ac tive Macho aLwler MD Active IBUPROFEN 600 MG TAB 1 po q6-8hr PRN IBUPROFEN 953301 22947 Active Gloria Elder Active CLARITIN 10 MG TAB 1 tablet by mouth daily as needed for allergies LORATADINE 22736216458 Active Gloria Elder Active LISINOPRIL 10 MG TABS 1 tablet by mouth daily L ISINOPRIL 31597588953 Active Gloria Elder Active FLONASE 50 MCG/ACT SUSP 1 spray each nostril twice d aily for allergies and runny nose FLONASE 50 MCG/ACT SUSP 7312096 FLUT ICASONE PROPIONATE Inactive Advance Directives Directive [...] ng/mL Encounters Code Encounter Date Provider Facility CPT-18499 Level 2 Est. Patient 18:29:02 CDT Macho breaux MD [facility] CPT-05088 Level 4 New Patient 15:56:58 CDT Macho boggs MD [facility] - [facility] Procedures Code Procedure Name Date Entry Date Standard Desc ription CPT-38137 Needle Biopsy - Prostate 09:12:00 CDT 05/05 CPT-35413 Ultrasound - Prostatic for Bx 09:11:59 CDT CPT-91768 Abx/Therapy Injection 18:29:02 CDT CPT-28502 Ultrasound - Prostatic for Bx 18:29:02 CDT CPT-10683 Needle Biopsy - Prostate 18:29:01 CDT 05/11
--- OUTSIDE RECORDS SUMMARY | 2019-12-07 04:23 | XMS REPORT | Clinical Summary ---
[...] for allergies and runny nose FLUTICASONE PROPIONATE 93450568526 No Longer Ac tive Macho Lawler MD Active IBUPROFEN 600 MG TAB 1 po q6-8hr PRN IBUPROFEN 996300 16535 Active Gloria Elder Active CLARITIN 10 MG TAB 1 tablet by mouth daily as needed for allergies LORATADINE 70947688734 Active Gloria Elder Active LISINOPRIL 10 MG TABS 1 tablet by mouth daily L ISINOPRIL 55926983222 Active Gloria Elder Active FLONASE 50 MCG/ACT SUSP 1 spray each nostril twice d aily for allergies and runny nose FLONASE 50 MCG/ACT SUSP 2001333 FLUT ICASONE PROPIONATE Inactive Advance Directives Directive [...] d Encounters Code Encounter Date Provider Facility CPT-59385 Level 2 Est. Patient 18:29:02 CDT Macho breaux MD [facility] CPT-98337 Level 4 New Patient 15:56:58 CDT Macho boggs MD [facility] - [facility] Procedures Code Procedure Name Date Entry Date Standard Desc ription CPT-36700 Needle Biopsy - Prostate 09:12:00 CDT 05/05 CPT-87361 Ultrasound - Prostatic for Bx 09:11:59 CDT CPT-36232 Abx/Therapy Injection 18:29:02 CDT CPT-56849 Ultrasound - Prostatic for Bx 18:29:02 CDT CPT-04002 Needle Biopsy - Prostate 18:29:01 CDT 05/11
--- OUTSIDE RECORDS SUMMARY | 2019-12-07 04:23 | XMS REPORT | Clinical Summary ---
Author Author Massimo, Kwasi Andino Organization [facility] Address Unknown Phone Unavailable Allergies, Adverse [...] under to unge prn chest pain NITROGLYCERIN 00183114966 Active Macho Lawler MD Active XANAX 0.25 MG ORAL TABLET 1 po TID PRN Anxiety ALPRAZOLAM 45082296613 Active Macho Lawler MD Active TYLENOL GO TABS EXTRA STRENGTH 500 MG ORAL TABLET CHEW ABLE 1 to 2 tabs by mouth prn ACETAMINOPHEN 10140989993 Active Macho Lawler MD Active PROSTATE HEALTH ORAL CAPSULE 1 cap by mouth daily [facility] NATURAL PRODUCTS 91339015041 Active Macho Lawler MD Active ASPIRIN 81 MG ORAL TABLET DELAYED RELEASE 1 po qd ASPIRIN 83293291309 Ghazal Lawler MD Active RANEXA 500 MG ORAL TABLET EXTENDED RELEASE 12 HOUR 1 tab by mouth daily RANOLAZINE 33025131345 Active Macho Lawler MD Active BRILINTA 90 MG ORAL TABLET 1 tab by mouth daily TICAGRELOR 33422393428 Ghazal Lawler MD Active IBUPROFEN 600 MG ORAL TABLET 1 po q6-8hr PRN IB UPROFEN 34212058809 No Longer Active Macho Lawler MD Active CLARITIN 10 MG ORAL TABLET 1 tablet by mouth daily as needed for allergies LORATADINE 74444281109 No Longer Active Macho solano MD Active FLONASE 50 MCG/ACT NASAL SUSPENSION 1 spray each nostr il twice daily for allergies and runny nose FLUTICASONE PROPIONATE 29632276751 No Longer Active Macho Lawler MD Active LISINOPRIL 10 MG ORAL TABLET 1 tablet by mouth daily LISINOPRIL 28561870844 Active Gloria Elder Active FLONASE 50 MCG/ACT NASAL SUSPENSION 1 spray each nostr il twice daily for allergies and runny nose FLONASE 50 MCG/ ACT NASAL SUSPENSION 1142472 FLUTICASONE PROPIONATE Inactive CLARITIN 10 MG ORAL TABLET 1 tablet by mouth daily as needed for allergies CLARITIN 10 MG ORAL TABLET 993971 LORATADINE I nactive IBUPROFEN 600 MG ORAL TABLET 1 po q6-8hr PRN 7 IBUPROFEN 600 MG ORAL TABLET 827407 IBUPROFEN Inactive Advance Directives Directive Description Start [...] ng/mL Encounters Code Encounter Date Provider Facility CPT-58034 Level 3 Est. 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 Patient 18:29:02 CDT Macho breuax MD [facility] CPT-83502 Level 4 New Patient 15:56:58 CDT Macho boggs MD [facility] Procedures Code Procedure Name Date Entry Date Standard Desc ription CPT-12588 Needle Biopsy - Prostate 09:12:00 CDT 05/05 CPT-05437 Ultrasound - Prostatic for Bx 09:11:59 CDT CPT-14425 Abx/Therapy Injection 18:29:02 CDT CPT-55274 Ultrasound - Prostatic for Bx 18:29:02 CDT CPT-38377 Needle Biopsy - Prostate 18:29:01 CDT 05/11
--- OUTSIDE RECORDS SUMMARY | 2019-12-07 04:23 | XMS REPORT | Clinical Summary ---
Author Author Admin, Kwasi Andino Organization [facility] Address Unknown Phone Unavailable Allergies, [...] for allergies and runny nose FLUTICASONE PROPIONATE 14083169492 No Longer Ac tive Macho Lawler MD Active IBUPROFEN 600 MG TAB 1 po q6-8hr PRN IBUPROFEN 525648 86131 Active Gloria Elder Active CLARITIN 10 MG TAB 1 tablet by mouth daily as needed for allergies LORATADINE 26357425977 Active Gloria Elder Active LISINOPRIL 10 MG TABS 1 tablet by mouth daily L ISINOPRIL 68886308022 Active Gloria Elder Active FLONASE 50 MCG/ACT SUSP 1 spray each nostril twice d aily for allergies and runny nose FLONASE 50 MCG/ACT SUSP 6087229 FLUT ICASONE PROPIONATE Inactive Advance Directives Directive [...] ng/mL Encounters Code Encounter Date Provider Facility CPT-78196 Level 2 Est. Patient 18:29:02 CDT Macho breaux MD [facility] CPT-01769 Level 4 New Patient 15:56:58 CDT Macho boggs MD [facility] - [facility] Procedures Code Procedure Name Date Entry Date Standard Desc ription CPT-30894 Needle Biopsy - Prostate 09:12:00 CDT 05/05 CPT-00902 Ultrasound - Prostatic for Bx 09:11:59 CDT CPT-95864 Abx/Therapy Injection 18:29:02 CDT CPT-65240 Ultrasound - Prostatic for Bx 18:29:02 CDT CPT-38402 Needle Biopsy - Prostate 18:29:01 CDT 05/11
--- OUTSIDE RECORDS SUMMARY | 2019-12-07 04:23 | XMS REPORT | Clinical Summary ---
Author Author Admin, Kwasi Andino Organization [facility] Address Unknown Phone Unavailable Allergies, Adverse [...] for allergies and runny nose FLUTICASONE PROPIONATE 65460462534 No Longer Ac tive Macho Lawler MD Active IBUPROFEN 600 MG TAB 1 po q6-8hr PRN IBUPROFEN 430421 92841 Active Gloria Elder Active CLARITIN 10 MG TAB 1 tablet by mouth daily as needed for allergies LORATADINE 93136893964 Active Gloria Elder Active LISINOPRIL 10 MG TABS 1 tablet by mouth daily L ISINOPRIL 93096049072 Active Gloria Elder Active FLONASE 50 MCG/ACT SUSP 1 spray each nostril twice d aily for allergies and runny nose FLONASE 50 MCG/ACT SUSP 1108569 FLUT ICASONE PROPIONATE Inactive Advance Directives Directive [...] ng/mL Encounters Code Encounter Date Provider Facility CPT-72580 Level 2 Est. Patient 18:29:02 CDT Macho breaux MD [facility] CPT-10913 Level 4 New Patient 15:56:58 CDT Macho boggs MD [facility] - [facility] Procedures Code Procedure Name Date Entry Date Standard Desc ription CPT-97329 Needle Biopsy - Prostate 09:12:00 CDT 05/05 CPT-55847 Ultrasound - Prostatic for Bx 09:11:59 CDT CPT-05870 Abx/Therapy Injection 18:29:02 CDT CPT-51146 Ultrasound - Prostatic for Bx 18:29:02 CDT CPT-78173 Needle Biopsy - Prostate 18:29:01 CDT 05/11
--- OUTSIDE RECORDS SUMMARY | 2019-12-07 04:23 | XMS REPORT | Clinical Summary ---
Author Author Massimo, Kwasi Andino Organization [facility] Address Unknown Phone Unavailable Allergies, [...] under to unge prn chest pain NITROGLYCERIN 51915617805 Active Macho Lawler MD Active XANAX 0.25 MG ORAL TABLET 1 po TID PRN Anxiety ALPRAZOLAM 15050040543 Active Macho Lawler MD Active TYLENOL GO TABS EXTRA STRENGTH 500 MG ORAL TABLET CHEW ABLE 1 to 2 tabs by mouth prn ACETAMINOPHEN 61039151008 Active Macho Lawler MD Active PROSTATE HEALTH ORAL CAPSULE 1 cap by mouth daily [facility] NATURAL PRODUCTS 83713070480 Active Macho Lawler MD Active ASPIRIN 81 MG ORAL TABLET DELAYED RELEASE 1 po qd ASPIRIN 88339466132 Ghazal Lawler MD Active RANEXA 500 MG ORAL TABLET EXTENDED RELEASE 12 HOUR 1 tab by mouth daily RANOLAZINE 98484570527 Active Macho Lawler MD Active BRILINTA 90 MG ORAL TABLET 1 tab by mouth daily TICAGRELOR 86269773818 Ghazal Lawler MD Active IBUPROFEN 600 MG ORAL TABLET 1 po q6-8hr PRN IB UPROFEN 75491010482 No Longer Active Macho Lawler MD Active CLARITIN 10 MG ORAL TABLET 1 tablet by mouth daily as needed for allergies LORATADINE 38161762167 No Longer Active Macho solano MD Active FLONASE 50 MCG/ACT NASAL SUSPENSION 1 spray each nostr il twice daily for allergies and runny nose FLUTICASONE PROPIONATE 11886369704 No Longer Active Macho Lawler MD Active LISINOPRIL 10 MG ORAL TABLET 1 tablet by mouth daily LISINOPRIL 81833488897 Active Gloria Elder Active FLONASE 50 MCG/ACT NASAL SUSPENSION 1 spray each nostr il twice daily for allergies and runny nose FLONASE 50 MCG/ ACT NASAL SUSPENSION 5838884 FLUTICASONE PROPIONATE Inactive CLARITIN 10 MG ORAL TABLET 1 tablet by mouth daily as needed for allergies CLARITIN 10 MG ORAL TABLET 658518 LORATADINE I nactive IBUPROFEN 600 MG ORAL TABLET 1 po q6-8hr PRN 7 IBUPROFEN 600 MG ORAL TABLET 203423 IBUPROFEN Inactive Advance Directives Directive Description Start [...] ng/mL Encounters Code Encounter Date Provider Facility CPT-03013 Level 3 Est. 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 Patient 18:29:02 CDT Macho breaux MD [facility] CPT-65591 Level 4 New Patient 15:56:58 CDT Macho boggs MD [facility] Procedures Code Procedure Name Date Entry Date Standard Desc ription CPT-73676 Needle Biopsy - Prostate 09:12:00 CDT 05/05 CPT-45090 Ultrasound - Prostatic for Bx 09:11:59 CDT CPT-92667 Abx/Therapy Injection 18:29:02 CDT CPT-69367 Ultrasound - Prostatic for Bx 18:29:02 CDT CPT-02671 Needle Biopsy - Prostate 18:29:01 CDT 05/11
--- OUTSIDE RECORDS SUMMARY | 2019-12-07 04:23 | XMS REPORT | Clinical Summary ---
Author Author Admin, Kwasi Andino Organization [facility] Address Unknown Phone Unavailable Allergies, [...] for allergies and runny nose FLUTICASONE PROPIONATE 07334983966 No Longer Ac tive Macho Lawler MD Active IBUPROFEN 600 MG TAB 1 po q6-8hr PRN IBUPROFEN 539505 94235 Active Gloria Elder Active CLARITIN 10 MG TAB 1 tablet by mouth daily as needed for allergies LORATADINE 04089338895 Active Gloria Elder Active LISINOPRIL 10 MG TABS 1 tablet by mouth daily L ISINOPRIL 52681675353 Active Gloria Elder Active FLONASE 50 MCG/ACT SUSP 1 spray each nostril twice d aily for allergies and runny nose FLONASE 50 MCG/ACT SUSP 3127446 FLUT ICASONE PROPIONATE Inactive Advance Directives Directive [...] ng/mL Encounters Code Encounter Date Provider Facility CPT-30500 Level 2 Est. Patient 18:29:02 CDT Macho breaux MD [facility] CPT-41840 Level 4 New Patient 15:56:58 CDT Macho boggs MD [facility] Procedures Code Procedure Name Date Entry Date Standard Desc ription CPT-27817 Needle Biopsy - Prostate 09:12:00 CDT 05/05 CPT-72808 Ultrasound - Prostatic for Bx 09:11:59 CDT CPT-33855 Abx/Therapy Injection 18:29:02 CDT CPT-40208 Ultrasound - Prostatic for Bx 18:29:02 CDT CPT-85081 Needle Biopsy - Prostate 18:29:01 CDT 05/11
--- OUTSIDE RECORDS SUMMARY | 2019-12-07 04:23 | XMS REPORT | Clinical Summary ---
Author Author Admin, Kwasi Chandra [facility] Address Unknown Phone Unavailable Allergies, [...] for allergies and runny nose FLUTICASONE PROPIONATE 51373942477 No Longer Ac tive Macho Lawler MD Active IBUPROFEN 600 MG TAB 1 po q6-8hr PRN IBUPROFEN 032207 30213 Active Gloria Elder Active CLARITIN 10 MG TAB 1 tablet by mouth daily as needed for allergies LORATADINE 85550990537 Active Gloria Elder Active LISINOPRIL 10 MG TABS 1 tablet by mouth daily L ISINOPRIL 67261535177 Active Gloria Elder Active FLONASE 50 MCG/ACT SUSP 1 spray each nostril twice d aily for allergies and runny nose FLONASE 50 MCG/ACT SUSP 5563399 FLUT ICASONE PROPIONATE Inactive Advance Directives Directive Description Start Date PERMISSION TO SHARE Vital Signs Date Name Value Unit Range Description blood pressure, diastolic - 8462-4 72 mm[Hg] BP [place] blood pressure, systolic - 8480-6 130 mm[Hg] BP sys height E&M - 8302-2 72 [in_us] Bdy h eight pulse rate E&M - 8867-4 72 /min H eart rate temperature E&M 97.6 [degF] Body temp erature weight E&M - 3141-9 260 [lb_av] Weigh t Measured Encounters Code Encounter Date Provider Facility CPT-20673 Level 4 New Patient 15:56:58 CDT J Alfredito boggs MD [facility]
--- OUTSIDE RECORDS SUMMARY | 2019-12-07 04:23 | XMS REPORT | Clinical Summary ---
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) Elevated prostate specific antigen [PSA] 790.93 Active Macho Lawler MD Elevated prostate specific antigen [PSA] Medication List Medication Instructions Start Date Stop Date Generic Name NDC Status Provider Patient Instruction FLONASE 50 MCG/ACT SUSP 1 spray each nostril twice d aily for allergies and runny nose FLUTICASONE PROPIONATE 58111261131 No Longer Ac tive Macho Lawler MD Active IBUPROFEN 600 MG TAB 1 po q6-8hr PRN IBUPROFEN 015263 12646 Active Gloria Elder Active CLARITIN 10 MG TAB 1 tablet by mouth daily as needed for allergies LORATADINE 13067876551 Active Gloria Elder Active LISINOPRIL 10 MG TABS 1 tablet by mouth daily L ISINOPRIL 24182562921 Active Gloria Elder Active FLONASE 50 MCG/ACT SUSP 1 spray each nostril twice d aily for allergies and runny nose FLONASE 50 MCG/ACT SUSP 2645356 FLUT ICASONE PROPIONATE Inactive Advance Directives Directive Description Start Date PERMISSION TO SHARE Encounters Code Encounter Date Provider Facility CPT-59816 Level 4 New Patient 15:56:58 TOPHER boggs MD [facility]
--- OUTSIDE RECORDS SUMMARY | 2019-12-07 04:23 | XMS REPORT | Clinical Summary ---
Author Author Admin, Kwasi Andino Organization [facility] Address Unknown Phone Unavailable Allergies, Adverse [...] for allergies and runny nose FLUTICASONE PROPIONATE 94513028994 No Longer Ac tive Macho Lawler MD Active IBUPROFEN 600 MG TAB 1 po q6-8hr PRN IBUPROFEN 171227 96853 Active Gloria Elder Active CLARITIN 10 MG TAB 1 tablet by mouth daily as needed for allergies LORATADINE 02571927546 Active Gloria Elder Active LISINOPRIL 10 MG TABS 1 tablet by mouth daily L ISINOPRIL 55489160605 Active Gloria Elder Active FLONASE 50 MCG/ACT SUSP 1 spray each nostril twice d aily for allergies and runny nose FLONASE 50 MCG/ACT SUSP 3437096 FLUT ICASONE PROPIONATE Inactive Advance Directives Directive [...] ng/mL Encounters Code Encounter Date Provider Facility CPT-74753 Level 2 Est. Patient 18:29:02 CDT Macho breaux MD [facility] CPT-90334 Level 4 New Patient 15:56:58 CDT Macho boggs MD [facility] Procedures Code Procedure Name Date Entry Date Standard Desc ription CPT-72179 Needle Biopsy - Prostate 09:12:00 CDT 05/05 CPT-94739 Ultrasound - Prostatic for Bx 09:11:59 CDT CPT-54175 Abx/Therapy Injection 18:29:02 CDT CPT-99677 Ultrasound - Prostatic for Bx 18:29:02 CDT CPT-71874 Needle Biopsy - Prostate 18:29:01 CDT 05/11
--- OUTSIDE RECORDS SUMMARY | 2019-12-07 04:23 | XMS REPORT | Clinical Summary ---
Demographics Home Phone Preferred Language Unknown Marital Status Unknown Mosque Affiliation Unknown Race Unknown Ethnic Group Unknown Author Author Massimo, Kwasi Chandra [facility] Address Unknown Phone Unavailable Allergies, Adverse Reactions, Alerts Allergy Name Reaction Description Start Date Severity Status Pr ovider LATEX rash Moderate Active Gloria Elder MORPHINE hallucination Critical Active Gloria Elder Conditions or Problems Problem Name Problem Code Onset Date Status Entry Date Provider Comment Standard Description Annotate Problems Unknown Active Medication List Medication Instructions Start Date Stop Date Generic Name NDC Status Provider Patient Instruction FLONASE 50 MCG/ACT SUSP 1 spray each nostril twice d aily for allergies and runny nose FLUTICASONE PROPIONATE 00876002784 Active Gloria Elde r Active IBUPROFEN 600 MG TAB 1 po q6-8hr PRN IBUPROFEN 629327 66084 Active Gloria Elder Active CLARITIN 10 MG TAB 1 tablet by mouth daily as needed for allergies LORATADINE 08147238857 Active Gloria Elder Active LISINOPRIL 10 MG TABS 1 tablet by mouth daily L ISINOPRIL 66336080759 Active Gloria Elder Active
--- OUTSIDE RECORDS SUMMARY | 2019-12-07 04:23 | XMS REPORT | Clinical Summary ---
[...] under to unge prn chest pain NITROGLYCERIN 10648062989 Active Macho Lawler MD Active XANAX 0.25 MG ORAL TABLET 1 po TID PRN Anxiety ALPRAZOLAM 75076201403 Active Macho Lawler MD Active TYLENOL GO TABS EXTRA STRENGTH 500 MG ORAL TABLET CHEW ABLE 1 to 2 tabs by mouth prn ACETAMINOPHEN 36456835330 Active Macho Lawler MD Active PROSTATE HEALTH ORAL CAPSULE 1 cap by mouth daily [facility] NATURAL PRODUCTS 54069067978 Active Macho Lawler MD Active ASPIRIN 81 MG ORAL TABLET DELAYED RELEASE 1 po qd ASPIRIN 70809813032 Ghazal Lawler MD Active RANEXA 500 MG ORAL TABLET EXTENDED RELEASE 12 HOUR 1 tab by mouth daily RANOLAZINE 52848706510 Active Macho Lawler MD Active BRILINTA 90 MG ORAL TABLET 1 tab by mouth daily TICAGRELOR 11123554733 Ghazal Lawler MD Active IBUPROFEN 600 MG ORAL TABLET 1 po q6-8hr PRN IB UPROFEN 31440671899 No Longer Active Macho Lawler MD Active CLARITIN 10 MG ORAL TABLET 1 tablet by mouth daily as needed for allergies LORATADINE 96188790499 No Longer Active Macho solano MD Active FLONASE 50 MCG/ACT NASAL SUSPENSION 1 spray each nostr il twice daily for allergies and runny nose FLUTICASONE PROPIONATE 82870864948 No Longer Active Macho Lawler MD Active LISINOPRIL 10 MG ORAL TABLET 1 tablet by mouth daily LISINOPRIL 75802266538 Active Gloria Elder Active FLONASE 50 MCG/ACT NASAL SUSPENSION 1 spray each nostr il twice daily for allergies and runny nose FLONASE 50 MCG/ ACT NASAL SUSPENSION 5324501 FLUTICASONE PROPIONATE Inactive CLARITIN 10 MG ORAL TABLET 1 tablet by mouth daily as needed for allergies CLARITIN 10 MG ORAL TABLET 864030 LORATADINE I nactive IBUPROFEN 600 MG ORAL TABLET 1 po q6-8hr PRN 7 IBUPROFEN 600 MG ORAL TABLET 898322 IBUPROFEN Inactive Advance Directives Directive Description Start [...] d blood pressure, diastolic 72 mm[Hg] BP archuleat blood pressure, systolic 130 mm[Hg] BP sys [...] ng/mL Encounters Code Encounter Date Provider Facility CPT-21923 Level 3 Est. 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 Patient 18:29:02 CDT Macho breaux MD [facility] CPT-66089 Level 4 New Patient 15:56:58 CDT Macho boggs MD [facility] Procedures Code Procedure Name Date Entry Date Standard Desc ription CPT-49283 Needle Biopsy - Prostate 09:12:00 CDT 05/05 CPT-26686 Ultrasound - Prostatic for Bx 09:11:59 CDT CPT-38771 Abx/Therapy Injection 18:29:02 CDT CPT-74453 Ultrasound - Prostatic for Bx 18:29:02 CDT CPT-63638 Needle Biopsy - Prostate 18:29:01 CDT 05/11
--- OUTSIDE RECORDS SUMMARY | 2019-12-07 04:24 | XMS REPORT | Clinical Summary ---
Author Author Admin, Kwasi Andino Organization [facility] Address Unknown Phone Unavailable Allergies, [...] for allergies and runny nose FLUTICASONE PROPIONATE 38777482660 No Longer Ac tive Macho Lawler MD Active IBUPROFEN 600 MG TAB 1 po q6-8hr PRN IBUPROFEN 152904 15152 Active Gloria Elder Active CLARITIN 10 MG TAB 1 tablet by mouth daily as needed for allergies LORATADINE 83110766809 Active Gloria Elder Active LISINOPRIL 10 MG TABS 1 tablet by mouth daily L ISINOPRIL 49620608226 Active Gloria Elder Active FLONASE 50 MCG/ACT SUSP 1 spray each nostril twice d aily for allergies and runny nose FLONASE 50 MCG/ACT SUSP 6785130 FLUT ICASONE PROPIONATE Inactive Advance Directives Directive [...] ng/mL Encounters Code Encounter Date Provider Facility CPT-18621 Level 2 Est. Patient 18:29:02 CDT Macho breaux MD [facility] CPT-25304 Level 4 New Patient 15:56:58 CDT Macho boggs MD [facility] - [facility] Procedures Code Procedure Name Date Entry Date Standard Desc ription CPT-26574 Needle Biopsy - Prostate 09:12:00 CDT 05/05 CPT-09169 Ultrasound - Prostatic for Bx 09:11:59 CDT CPT-44314 Abx/Therapy Injection 18:29:02 CDT CPT-65346 Ultrasound - Prostatic for Bx 18:29:02 CDT CPT-65534 Needle Biopsy - Prostate 18:29:01 CDT 05/11
--- OUTSIDE RECORDS SUMMARY | 2019-12-07 04:24 | XMS REPORT | Continuity of Care Document ---
Author Organization Unknown Address Unknown Phone Unavailable Allergies Active Description Code Type Severity Reaction Onset Reported/Identified Relationship to Patient Clinical Status Yes Latex Drug Moderate 491399527 Yes morphine Drug Moderate 4705524 Medications There is no data. Problems Date Dx Coded Attending Type Code Diagnosis Diagnosed By 07/11/2019 Macho Calabrese MD R97.20 Rising PSA 07/11/2019 Macho Calabrese MD E6 6.9 Obesity Class I (BMI 30-34.9) 07/11/2019 Macho Calabrese MD Z68.34 BMI 34-34.9 07/11/2019 Macho Calabrese MD Z91.81 At Risk for Falls 10/11/2019 Macho Calabrese MD Z68.35 BMI 35-35.9 Procedures There is no data. Results Test Result Range LIPID PANEL - 12/18/18 12:10 CHOLESTEROL, TOTAL 216 mg/dL <200 HDL CHOLESTEROL 36 mg/dL >40 TRIGLYCERIDES 187 mg/dL <150 LDL-CHOLESTEROL 148 mg/dL (calc) NRG CHOL/HDLC RATIO 6.0 (calc) <5.0 NON HDL CHOLESTEROL 180 mg/dL (calc) <13 0 CMP - 12/18/18 12:10 GLUCOSE 87 mg/dL 65-99 UREA NITROGEN (BUN) 11 mg/dL 7-25 CREATININE 0.86 mg/dL 0.70-1.25 eGFR NON-AFR. ECUADOREAN 90 mL/min/1.73m2 > OR = 60 eGFR 105 mL/min/1.73m2 > OR = 60 BUN/CREATININE RATIO NOT APPLICABLE (calc) 6-22 SODIUM 142 mmol/L 135-146 POTASSIUM 4.5 mmol/L 3.5-5.3 CHLORIDE 106 mmol/L 98-110 CARBON DIOXIDE 31 mmol/L 20-32 CALCIUM 9.3 mg/dL 8.6-10.3 PROTEIN, TOTAL 7.0 g/dL 6.1-8.1 ALBUMIN 4.0 g/dL 3.6-5.1 GLOBULIN 3.0 g/dL (calc) 1.9-3.7 ALBUMIN/GLOBULIN RATIO 1.3 (calc) 1.0-2. 5 BILIRUBIN, TOTAL 0.8 mg/dL 0.2-1.2 ALKALINE PHOSPHATASE 57 U/L 40-115 AST 15 U/L 10-35 ALT 15 U/L 9- LIPID PANEL - 06/17/19 11:10 CHOLESTEROL, TOTAL 211 mg/dL <200 HDL CHOLESTEROL 35 mg/dL >40 TRIGLYCERIDES 184 mg/dL <150 LDL-CHOLESTEROL 144 mg/dL (calc) NRG CHOL/HDLC RATIO 6.0 (calc) <5.0 NON HDL CHOLESTEROL 176 mg/dL (calc) <13 0 CMP - 06/17/19 11:10 GLUCOSE 85 mg/dL 65-99 UREA NITROGEN (BUN) 13 mg/dL 7-25 CREATININE 0.89 mg/dL 0.70-1.25 eGFR NON-AFR. ECUADOREAN 88 mL/min/1.73m2 > OR = 60 eGFR 103 mL/min/1.73m2 > OR = 60 BUN/CREATININE RATIO NOT APPLICABLE (calc) 6-22 SODIUM 141 mmol/L 135-146 POTASSIUM 4.6 mmol/L 3.5-5.3 CHLORIDE 104 mmol/L 98-110 CARBON DIOXIDE 24 mmol/L 20-32 CALCIUM 9.3 mg/dL 8.6-10.3 PROTEIN, TOTAL 6.8 g/dL 6.1-8.1 ALBUMIN 3.9 g/dL 3.6-5.1 GLOBULIN 2.9 g/dL (calc) 1.9-3.7 ALBUMIN/GLOBULIN RATIO 1.3 (calc) 1.0-2. 5 BILIRUBIN, TOTAL 0.8 mg/dL 0.2-1.2 ALKALINE PHOSPHATASE 68 U/L 40-115 AST 14 U/L 10-35 ALT 14 U/L 9 PSA - 06/17/19 11:10 PSA, TOTAL 12.0 ng/mL < OR = 4.0 EXTRA LAVENDER-TOP TUBE - 06/17/19 11:10 COMMENT NRG EXTRA LAVENDER-TOP TUBE NRG Encounters ACCT No. Visit Date/Time Discharge Status Pt. Type Provider Facility Loc./Unit Complaint [id number] 08/14/2019 14:40:00 08/14/2019 23:59: 59 CLS Outpatient [facility] [id number] 06/17/2019 10:20:00 Document Registration [id number] 12/18/2018 11:15:00 Document Registration [id number] 11/25/2019 14:48:30 0 23:59:59 CLS Preadmit CARIN CALABRESE [facility] Surgery ops [id number] 12/04/2019 11:17:00 ACT Unknown Macho Calabrese MD
[2019-12-07 04:32] LABS: BILIRUBIN,URINE 1+ (NEGATIVE); CLARITY,URINE CLOUDY; COLOR,URINE RED; GLUCOSE, URINE (UA) TRACE (NEGATIVE); KETONES,URINE NEGATIVE (NEGATIVE); LEUKOCYTE ESTERASE ,URINE 1+ (NEGATIVE); NITRITE,URINE POSITIVE (NEGATIVE); PH,URINE 6.5 (5-9); PROTEIN,URINE 3+ (NEGATIVE); RBC,URINE TNTC /HPF
--- NOTE | 2019-12-07 04:40 | ED GU-Male ---
General Stated Complaint: URINARY PROBLEMS Source: patient History of Present Illness Date Seen by Provider: Dec 07, 2019 Time Seen by Provider: 04:18 Initial Comments 69 yo M presenting with complaints of burning pain with urination and only able to dribble small amount of urine since 2229 last night. He had a prostate biopsy on Monday with Dr. Lawler out of [place] due to elevated PSA levels. He has been doing fine with urination until Monday night. He states that usually has to get up overnight to urinate a few times. However Monday evening he was having discomfort and burning with urination and was only able to dribble small amounts of urine. He started having blood in his urine. He denies any fever or chills. He has a lot of pressure and discomfort like he needs to urinate but is not able ago. Allergies and Home Medications Allergies Coded Allergies: morphine (Verified Allergy, Unknown, 12/07/19) Home Medications Ciprofloxacin HCl 500 Mg Tablet, 500 MG PO BID Prescribed by: ALEXUS SMITH on 12/07/19521 Lisinopril 10 Mg Tablet, 10 MG PO DAILY, (Reported) Phenazopyridine HCl 100 Mg Tablet, 100 MG PO TID Prescribed by: ALEXUS SMITH on 12/07/19521 Tamsulosin HCl 0.4 Mg Cap, 0.4 MG PO DAILY, (Reported) Patient Home Medication List Home Medication List Reviewed: Yes Review of Systems Review of Systems Constitutional: no symptoms reported EENTM: no symptoms reported Respiratory: no symptoms reported Cardiovascular: no symptoms reported Gastrointestinal: no symptoms reported Genitourinary: see HPI, dysuria, hematuria, pain (sensation that he needs to urinate and pressure but unable to pass more than small amounts of urine since 2229) Musculoskeletal: no symptoms reported Skin: no symptoms reported Past Dqlwijw-Lkvhor-Yqyljd Hx Past Med/Social Hx: Reviewed Nursing Past Med/Soc Hx Patient Social History Recent Foreign Travel: No Contact w/Someone Who Travel: No Past Medical History Surgeries: Yes (Prostate bx November 2019) Gallbladder, Orthopedic (left leg) Cardiac: Yes Hypertension Neurological: No Genitourinary: Yes Benign Prostatic Hyperpl Gastrointestinal: Yes Gall Bladder Disease Physical Exam Vital Signs Vital Signs - First Documented 12/07/19 04:19 Temp 36.1 Pulse 67 Resp 20 B/P (MAP) 192/80 (117) Pulse Ox 97 O2 Delivery Room Air Capillary Refill : Height, Weight, BMI Height: '" Weight: lbs. oz. kg; BMI Method: General Appearance: WD/WN, moderate distress HEENT: PERRL/EOMI, pharynx normal Neck: supple, normal inspection Cardiovascular: normal peripheral pulses, regular rate, rhythm Respiratory: chest non-tender, lungs clear, normal breath sounds, no respiratory distress, no accessory muscle use Gastrointestinal: normal bowel sounds, soft, no pulsatile mass, distended (lower abdomen with tenderness and increased pressure/sensation of need to urinate with palpation) Male: normal genitalia (uncircumcised) Neurologic/Psychiatric: alert, oriented x 3 Skin: normal color, warm/dry Progress/Results/Core Measures Suspected Sepsis SIRS Temperature: Pulse: Respiratory Rate: Blood Pressure / Mean: Results/Orders Lab Results Laboratory Tests Test 12/07/19 04:20 Range/Units Urine Color RED H Urine Clarity CLOUDY Urine pH 6.5 5-9 Urine Specific [place] 1.020 1.016-1.022 Urine Protein 3+ H NEGATIVE Urine Glucose (UA) TRACE H NEGATIVE Urine Ketones NEGATIVE NEGATIVE Urine Nitrite POSITIVE H NEGATIVE Urine Bilirubin 1+ H NEGATIVE Urine Urobilinogen 1.0 < = 1.0 MG/DL Urine Leukocyte Esterase 1+ H NEGATIVE Urine RBC (Auto) 3+ H NEGATIVE Urine RBC TNTC H /HPF Urine WBC /HPF Urine Crystals NONE /LPF Urine Bacteria /HPF Urine Casts NONE /LPF Urine Mucus NEGATIVE /LPF Urine Culture Indicated YES My Orders Orders - ALEXUS SMITH MD Ua Culture If Indicated (12/07/19 04:19) Bladder Scan (12/07/19 04:19) Murray Cath (12/07/19 04:32) Urine Culture (12/07/19 04:20) Ciprofloxacin Tablet (Cipro Tablet) (12/07/19 05:00) Phenazopyridine Tablet (Pyridium Tablet) (12/07/19 05:04) Vital Signs/I&O 12/07/19 12/07/19 04:19 05:27 Temp 36.1 36.1 Pulse 67 67 Resp 20 20 B/P (MAP) 192/80 (117) 192/80 (117) Pulse Ox 97 97 O2 Delivery Room Air Capillary Refill : Progress Note #1: Progress Note urine sample is bloody and small amount but sent to lab to check for infection. Will obtain bladder scan but with his degree of discomfort will also plan to place a catheter for draining his bladder to try and relieve his discomfort of the sensation that he needs to urinate. Progress Note #2: Time: 04:48 Progress Note Urine does show infection with nitrites and LE so will place him on cipro. He also seems to be having spasms so will place him on some pyridium. He is draining urine and having some blood that is settling in the tubing. He has some blood leaking around the catheter in his urethra that might be from a combination of the trauma of recent biopsy as well as the trauma from catheter placement tonight and the UTI. He states he does have relief of the sensation of pressure in his bladder but has constant sensation that he is urinating now from the catheter in his penis. He has an 18 Fr coudet catheter placed. Both leg bag and and large bag will be sent with pt and will start him on meds as above. Counseled to call Dr. Lawler on Monday about follow up and when to have catheter removed. Departure Impression Primary Impression: Acute cystitis with hematuria Additional Impression: Acute urinary retention Disposition: HOME, SELF-CARE Condition: Stable Departure-Patient Inst. Decision time for Depature: 05:23 Referrals: MITRA LOPEZ MD NO,LOCAL PHYSICIAN (PCP) Primary Care Physician Patient Instructions: Blood in the Urine (Hematuria), Adult (DC), How to Care for Your Murray Catheter, Male, Urinary Retention (DC), Urinary Tract Infection, Adult (DC) Add. Discharge Instructions: Take the full course of antibiotics to treat for urine infection. Drink plenty of water and cranberry juice to help flush out your urine and help to treat infection. Call Dr. Lawler Monday morning about follow up and to see what he wants you to do about the catheter and the hematuria (blood in urine with infection) The Pyridium (Phenazopyridine) will help with spasm and bladder pain, but will make your urine a reddish orange color while you are taking it. Scripts Phenazopyridine HCl (Phenazopyridine HCl) 100 Mg Tablet 100 MG PO TID for urinary pain/spasm for 2 Days, #5 TAB 0 Refills Prov: ALEXUS SMITH MD 12/07/19 Ciprofloxacin HCl (Ciprofloxacin HCl) 500 Mg Tablet 500 MG PO BID for UTI for 10 Days, #20 TAB 0 Refills Prov: ALEXUS SMITH MD 12/07/19 ALEXUS SMITH MD Dec 07, 2019 04:40
[2019-12-07] MEDS ORDERED: LISI10TA2 PO (04:46)
[2019-12-07] MEDS ORDERED: TMSL.4C PO (04:46)
[2019-12-07] MEDS ORDERED: CIPROFLOXACIN 500 MG (CIPRO) TABLET PO STA (05:00)
[2019-12-07] MEDS ORDERED: PHENAZOPYRIDINE 100 MG (PYRIDIUM) TABLET PO STA (05:04)
[2019-12-07] MEDS ORDERED: PHEN-826 PO (05:22)
[2019-12-07] MEDS ORDERED: CIPR500T4 PO (05:22)
[2019-12-07 05:27] VITALS: BP 192/80
== END 2019-12-07 05:27 | disposition home or self-care (01) ==
LOC: EDUNIT# 04:14 → ER FS 04:17
DX: N30.01 Acute cystitis with hematuria (principal); R33.9 Retention of urine, unspecified; N40.1 Benign prostatic hyperplasia with lower urinary tract symptoms; I10 Essential (primary) hypertension; Z79.899 Other long term (current) drug therapy
CPT/HCPCS: 51702; 81000; 87088

== ENCOUNTER → 2020-02-03 | Outpatient (CLI) | payer MEDICARE, OTHER ==
[~2020-02-03] MED LIST: CIPR500T4 PO; LISI10TA2 PO; PHEN-826 PO; TMSL.4C PO
[2020-02-03 08:40] LABS: SODIUM 141 MMOL/L (135-145)
[2020-02-03 08:41] LABS: ALANINE AMINOTRANSFERASE 16 U/L (0-55); ALBUMIN 3.7 GM/DL (3.2-4.5); ALKALINE PHOSPHATASE 59 U/L (40-136); BILIRUBIN,TOTAL 0.6 MG/DL (0.1-1.0); BUN/CREATININE RATIO 13; CARBON DIOXIDE 24 MMOL/L (21-32); CHLORIDE 106 MMOL/L (98-107); CREATININE SERUM 0.91 MG/DL (0.60-1.30); GFR ESTIMATED > 60; GLUCOSE 102 MG/DL (70-105); POTASSIUM 4.4 MMOL/L (3.6-5.0); TOTAL PROTEIN 6.9 GM/DL (6.4-8.2)
[2020-02-03 15:34] LABS: CHOLESTEROL 202 MG/DL (< 200); HDL CHOLESTEROL 33 MG/DL (40-60); TRIGLYCERIDES 153 MG/DL (<150); VLDL CHOLESTEROL 31 MG/DL (5-40)
== END ==
LOC: LAB FS 07:15
PROVIDERS: ATTEND Family Medicine
DX: I10 Essential (primary) hypertension (principal)
CPT/HCPCS: 36415; 80053; 80061

== ENCOUNTER → 2020-05-28 | Outpatient (CLI) | payer MEDICARE, OTHER | LOC: LAB FS 08:26 | PROVIDERS: ATTEND Urology | DX: R97.20 Elevated prostate specific antigen [PSA] (principal) | CPT/HCPCS: 36415; 84153 ==

== ENCOUNTER → 2020-10-22 | Outpatient (CLI) | payer MEDICARE, OTHER ==
[~2020-10-22] MED LIST changes: -CIPR500T4 PO; +CIPR500T5 PO; -LISI10TA2 PO; +LISI10TA25 PO
[2020-10-22 09:52] LABS: ALANINE AMINOTRANSFERASE 15 U/L (0-55); ALBUMIN 4.1 GM/DL (3.2-4.5); ALKALINE PHOSPHATASE 70 U/L (40-136); BILIRUBIN,TOTAL 0.8 MG/DL (0.1-1.0); BUN/CREATININE RATIO 13; CARBON DIOXIDE 29 MMOL/L (21-32); CHLORIDE 104 MMOL/L (98-107); CREATININE SERUM 0.92 MG/DL (0.60-1.30); GFR ESTIMATED > 60; GLUCOSE 96 MG/DL (70-105); POTASSIUM 4.3 MMOL/L (3.6-5.0); SODIUM 140 MMOL/L (135-145); TOTAL PROTEIN 7.2 GM/DL (6.4-8.2)
[2020-10-22 15:09] LABS: CHOLESTEROL 221 MG/DL (< 200); HDL CHOLESTEROL 37 MG/DL (40-60); TRIGLYCERIDES 169 MG/DL (<150); VLDL CHOLESTEROL 34 MG/DL (5-40)
== END ==
LOC: LAB FS 08:08
PROVIDERS: ATTEND Family Medicine
DX: I10 Essential (primary) hypertension (principal)
CPT/HCPCS: 36415; 80053; 80061

== ENCOUNTER → 2021-06-01 | Outpatient (CLI) | payer MEDICARE, OTHER | LOC: LAB FS 11:33 | PROVIDERS: ATTEND Urology | DX: R97.20 Elevated prostate specific antigen [PSA] (principal) | CPT/HCPCS: 36415; 84153 ==

== ENCOUNTER → 2021-07-12 | Outpatient (CLI) | payer MEDICARE, OTHER ==
[2021-07-12 12:11] LABS: BILIRUBIN,URINE NEGATIVE (NEGATIVE); CLARITY,URINE CLEAR; COLOR,URINE YELLOW; GLUCOSE, URINE (UA) NEGATIVE (NEGATIVE); KETONES,URINE NEGATIVE (NEGATIVE); LEUKOCYTE ESTERASE ,URINE NEGATIVE (NEGATIVE); NITRITE,URINE NEGATIVE (NEGATIVE); PH,URINE 5.5 (5-9); PROTEIN,URINE NEGATIVE (NEGATIVE)
[2021-07-12 12:26] LABS: BACTERIA,URINE NEGATIVE /HPF; RBC,URINE 0-2 /HPF; SQUAMOUS EPITHELIAL CELL,UR 0-2 /HPF; WBC,URINE 0-2 /HPF
== END ==
LOC: LAB FS 11:51
PROVIDERS: ATTEND Family Medicine
DX: R35.0 Frequency of micturition (principal)
CPT/HCPCS: 81000

== ENCOUNTER → 2021-08-03 | Outpatient (CLI) | payer MEDICARE, OTHER ==
[2021-08-03 09:50] LABS: POTASSIUM 4.5 MMOL/L (3.6-5.0)
[2021-08-03 09:51] LABS: CALCIUM 9.3 MG/DL (8.5-10.1); CREATININE SERUM 0.99 MG/DL (0.60-1.30)
== END ==
LOC: LAB FS 08:44
PROVIDERS: ATTEND Family Medicine
DX: I10 Essential (primary) hypertension (principal)
CPT/HCPCS: 36415; 80048

== ENCOUNTER → 2021-10-25 | Outpatient (CLI) | payer MEDICARE, OTHER | LOC: LAB FS 08:03 | PROVIDERS: ATTEND Urology | DX: R97.20 Elevated prostate specific antigen [PSA] (principal) | CPT/HCPCS: 36415; 84153 ==

== ENCOUNTER → 2021-12-27 | Outpatient (CLI) | payer MEDICARE, OTHER ==
[2021-12-27 10:23] LABS: ALBUMIN 3.9 GM/DL (3.2-4.5); BILIRUBIN,TOTAL 0.8 MG/DL (0.1-1.0); CALCIUM 9.5 MG/DL (8.5-10.1); CREATININE SERUM 0.96 MG/DL (0.60-1.30); POTASSIUM 4.5 MMOL/L (3.6-5.0); TOTAL PROTEIN 7.4 GM/DL (6.4-8.2)
== END ==
LOC: LAB FS 08:13
PROVIDERS: ATTEND Family Medicine
DX: E78.5 Hyperlipidemia, unspecified (principal); E11.40 Type 2 diabetes mellitus with diabetic neuropathy, unspecified
CPT/HCPCS: 36415; 80053; 80061

== ENCOUNTER → 2022-02-24 | Outpatient (CLI) | payer MEDICARE, OTHER | LOC: LAB FS 07:42 | PROVIDERS: ATTEND Urology | DX: R97.20 Elevated prostate specific antigen [PSA] (principal) | CPT/HCPCS: 36415; 84153 ==

== ENCOUNTER → 2022-04-25 | Outpatient (CLI) | payer MEDICARE, OTHER | LOC: LAB FS 08:55 | PROVIDERS: ATTEND Family Medicine | DX: N40.1 Benign prostatic hyperplasia with lower urinary tract symptoms (principal) | CPT/HCPCS: 36415; 84153 ==

== ENCOUNTER → 2022-08-01 | Outpatient (CLI) | payer MEDICARE, OTHER | LOC: LAB FS 08:16 | PROVIDERS: ATTEND Urology | DX: C61 Malignant neoplasm of prostate (principal) | CPT/HCPCS: 36415; 84153 ==

== ENCOUNTER → 2023-02-03 | Outpatient (CLI) | payer MEDICARE, OTHER | LOC: LAB FS 11:19 | PROVIDERS: ATTEND Urology | DX: C61 Malignant neoplasm of prostate (principal) | CPT/HCPCS: 36415; 84153 ==